=== PATIENT | female | born 1950 | race Caucasian/White ===

== ENCOUNTER → 2019-12-15 07:00 | Outpatient (CLI) | payer BC, SELFPAY ==
--- NOTE | ~2019-12-15 | MM_ITS ---
EXAMINATION: MM screening richard BI w jorge HISTORY: Screening mammogram, family history of breast cancer in her mother. TECHNIQUE: Craniocaudal and mediolateral oblique 3-D tomosynthesis images were obtained and synthetic 2-D images were generated. CAD analysis was submitted and interpreted. COMPARISON: 11/29/2018, 11/11/2017, 09/19/2016 BREAST PARENCHYMAL COMPOSITION: The breasts are almost entirely fatty. FINDINGS: RIGHT BREAST: An asymmetry is present in the middle/posterior third of the slightly outer breast 8 cm from the nipple on the craniocaudal view.. LEFT BREAST: There is no evidence of suspicious mass, calcification, or architectural distortion to s uggest malignancy. There has been no significant interval change. IMPRESSION: 1. Right breast asymmetry on the craniocaudal view. 2. Additional mammographic views and possible breast ultrasound are recommended. BI-RADS Category 0: Incomplete: Needs additional imaging evaluation. Reviewed, dictated and finalized at location A. FORGER IMPRESSION: 1. Right breast asymmetry on the craniocaudal view. 2. Additional mammographic views and possible breast ultrasound are recommended . BI-RADS Category 0: Incomplete: Needs additional imaging evaluation.
== END ==
PROVIDERS: PCP Obstetrics & Gynecology; Visit Provider Obstetrics & Gynecology
DX: Z12.31 Encounter for screening mammogram for malignant neoplasm of breast (principal); R92.8 Other abnormal and inconclusive findings on diagnostic imaging of breast
CPT/HCPCS: 77063; 77067

== ENCOUNTER → 2019-12-28 07:54 | Outpatient (CLI) | payer BC, SELFPAY ==
--- NOTE | ~2019-12-28 | MM_ITS ---
EXAMINATION: MM diagnostic mammo unilat RT HISTORY: Right breast asymmetry reported on 12/15/2019 screening craniocaudal view in middle/posterior third of slightly outer breast 8 cm from nipple TECHNIQUE: Rolled medial and rolled lateral craniocaudal views. Additional 3-D ML and spot craniocaud al tomosynthesis images of the right breast were performed and synthetic 2-D images were generated. C AD analysis was submitted and interpreted. COMPARISON: 12/15/2019 bilateral digital screening mammogram FINDINGS: The previously reported area of asymmetry is not reproduced on these supplemental views, co nsistent with composite shadowing of overlapping fibroglandular tissues. IMPRESSION: 1. No mammographic evidence of malignancy 2. Routine mammographic screening is recommended. BI-RADS Category 1: Negative Reviewed, dictated and finalized at location A. ER RECEPTIONIST
== END ==
PROVIDERS: PCP Family Medicine Adolescent Medicine; Visit Provider Obstetrics & Gynecology
DX: R92.8 Other abnormal and inconclusive findings on diagnostic imaging of breast (principal)
CPT/HCPCS: 77065

== ENCOUNTER → 2021-01-17 15:48 | Outpatient (CLI) | payer MEDICARE, OTHER, SELFPAY ==
--- NOTE | ~2021-01-17 | MM_ITS ---
EXAMINATION: MM screening richard BI w jorge HISTORY: Screening TECHNIQUE: Craniocaudal and mediolateral oblique 3-D tomosynthesis images were obtained and synthetic 2-D images were generated. CAD analysis was submitted and interpreted. COMPARISON: Comparison to multiple prior studies sequentially, with oldest reviewed study dated 02/2016. BREAST PARENCHYMAL COMPOSITION: There are scattered areas of fibroglandular density. FINDINGS: There is no evidence of suspicious mass, calcification, or architectural distortion to sugg est malignancy in either breast. There has been no suspicious interval change. IMPRESSION: 1. No mammographic evidence of malignancy. 2. Recommend routine screening mammography in one year. BI-RADS Category 1: Negative Reviewed, dictated and finalized at location A. HER CURRIER
== END ==
PROVIDERS: Visit Provider Student in an Organized Health Care Education/Training Program
DX: Z12.31 Encounter for screening mammogram for malignant neoplasm of breast (principal)
CPT/HCPCS: 77063; 77067

== ENCOUNTER → 2021-07-09 09:47 | Outpatient (CLI) | payer MEDICARE, OTHER, SELFPAY ==
--- NOTE | ~2021-07-09 | XR_ITS ---
XR hip BI wo pelvis DATE: 07/09/2021 12:01 INDICATION: Bilateral hip pain TECHNIQUE: Bilateral AP and lateral views of the hips COMPARISON: None FINDINGS: There is osteopenia. The pubic symphysis and sacroiliac joints are intact. There is bilateral hip joint chondrocalcinosis. There is moderate osteoarthritis at both hip joints. No fracture or dislocation, avascular necrosis or bone destruction. IMPRESSION: Bilateral hip osteoarthritis and chondrocalcinosis Reviewed, dictated and finalized at location A.
== END ==
PROVIDERS: PCP Family Medicine Adolescent Medicine; Visit Provider Physician Assistant
DX: M25.552 Pain in left hip (principal); M25.551 Pain in right hip; M16.0 Bilateral primary osteoarthritis of hip; M11.252 Other chondrocalcinosis, left hip; M11.251 Other chondrocalcinosis, right hip
CPT/HCPCS: 73521

== ENCOUNTER → 2021-08-19 10:10 | Outpatient (CLI) | payer MEDICARE, OTHER, SELFPAY ==
--- NOTE | ~2021-08-19 | US_ITS ---
EXAMINATION: US thyroid DATE: 08/19/2021 10:53 INDICATION: Left thyroid nodule. TECHNIQUE: Multiple ultrasound images of the thyroid were obtained. COMPARISON: None. FINDINGS: The right thyroid lobe measures 5.2 x 1.6 x 1.7 cm. The left thyroid lobe measures 4.7 x 1.9 x 2.0 c m. In the left thyroid lobe, there is a 2.8 cm solid, hypoechoic, zjpow-mzgr-gldb nodule with lobula justine margin without echogenic foci (TI-RADS TR4). IMPRESSION: 1. Left thyroid nodule. Ultrasound-guided fine-needle aspiration is recommended. Reviewed, dictated and finalized at location A. IMPRESSION: 1. Left thyroid nodule. Ultrasound-guided fine-needle aspiration is recommended .
== END ==
PROVIDERS: PCP Family Medicine Adolescent Medicine; Visit Provider Physician Assistant
DX: E04.1 Nontoxic single thyroid nodule (principal)
CPT/HCPCS: 76536

== ENCOUNTER 2021-08-23 09:43 | Outpatient (CLI) | payer MEDICARE, OTHER, SELFPAY ==
--- NOTE | ~2021-08-23 | US_ITS ---
EXAMINATION: US FNA w image guidance DATE: 08/23/2021 11:39 INDICATION: Left thyroid nodule TECHNIQUE: A time-out was performed to verify the patient's name, date of , and procedure to be performed . The procedure and its benefits and risks were discussed with the patient. Risks specifically discus sed included bleeding and infection. The patient understood the risks and agreed to proceed. The neck was prepped and draped in the usual sterile manner. 5 mL 1% lidocaine was used for local anesthesia . 6 passes were made with a 25G needle into the lesion. Appropriate needle location was documented with continuous sonographic guidance. The specimens were passed to the generation engineering technologist in the room. A sterile bandage was applied. There were no immediate complications. FINDINGS: Grayscale ultrasound images demonstrate biopsy needles advanced into a 2.4 cm TI-RADS 4 nodule in the left thyroid lobe. IMPRESSION: 1. Successful ultrasound-guided fine needle aspiration of a 2.4 cm TI-RADS 4 left thyroid nodule. Reviewed, dictated and finalized at location A. IMPRESSION: 1. Successful ultrasound-guided fine needle aspiration of a 2.4 cm TI-RADS 4 l eft thyroid nodule.
== END 2021-08-23 09:44 | disposition home or self-care (01) ==
PROVIDERS: PCP Family Medicine Adolescent Medicine; Visit Provider Family Medicine Adolescent Medicine
DX: E04.1 Nontoxic single thyroid nodule (principal)
CPT/HCPCS: 10005; 88173; 88305

== ENCOUNTER → 2022-02-21 16:34 | Outpatient (CLI) | payer MEDICARE, OTHER, SELFPAY ==
--- NOTE | ~2022-02-21 | MR_ITS ---
EXAMINATION: MR shoulder LT wo con DATE: 02/21/2022 17:21 INDICATION: Left shoulder pain TECHNIQUE: Magnetic resonance imaging (MRI) of the left shoulder was performed without intravenous co ntrast. Sequences included axial PD-weighted FS FSE, coronal oblique PD-weighted FS FSE, coronal obli que T2-weighted FS FSE, sagittal PD-weighted FS FSE, and sagittal T1-weighted SE. COMPARISON: Left shoulder radiographs dated 02/12/2022 FINDINGS: Coracoacromial arch: The acromion undersurface is curved in morphology (type II). The coracoacromial ligament is normal. M ild acromioclavicular osteoarthritis. Rotator cuff: Mild supraspinatus tendinopathy without discrete tear. The subscapularis, infraspinatus and teres min or tendons are normal. Normal rotator cuff muscle bulk and signal. Biceps tendon, glenoid labrum and glenohumeral cartilage: Long head of the biceps tendon is normal. Glenoid labrum is normal. Glenohumeral cartilage is normal. Fluid: Small amount of fluid in the long head biceps tendon sheath disproportionate to the physiologic amoun t fluid in the glenohumeral joint space consistent with mild bicipital tenosynovitis. No loose osteoc hondral bodies. No abnormal increased fluid signal in the subacromial/subdeltoid bursa to suggest bur sitis. Bones: Normal marrow signal. No fracture or pathologic marrow replacing process. IMPRESSION: 1. Mild supraspinatus tendinopathy without discrete tear. 2. Mild acromioclavicular osteoarthritis. 2. Mild bicipital tenosynovitis Reviewed, dictated and finalized at location B.
== END ==
PROVIDERS: PCP Family Medicine Adolescent Medicine; Visit Provider Physician Assistant Surgical
DX: M19.012 Primary osteoarthritis, left shoulder (principal); M65.812 Other synovitis and tenosynovitis, left shoulder
CPT/HCPCS: 73221

== ENCOUNTER → 2022-03-06 13:54 | Outpatient (CLI) | payer MEDICARE, OTHER, SELFPAY ==
--- NOTE | ~2022-03-06 | MM_ITS ---
EXAMINATION: MM screening richard BI w jorge HISTORY: Screening mammogram TECHNIQUE: Craniocaudal and mediolateral oblique 3-D tomosynthesis images were obtained and synthetic 2-D images were generated. CAD analysis was submitted and interpreted. COMPARISON: 01/2021, 12/15/2019, 11/29/2018 bilateral screening mammogram examinations To diagnostic right mammogram BREAST PARENCHYMAL COMPOSITION: The breasts are almost entirely fatty. FINDINGS: There is no evidence of suspicious mass, calcification, or architectural distortion to sugg est malignancy in either breast. There has been no suspicious interval change. IMPRESSION: 1. No mammographic evidence of malignancy. 2. Recommend routine screening mammography in one year. BI-RADS Category 1: Negative Reviewed, dictated and finalized at location A.
== END ==
PROVIDERS: PCP Family Medicine Adolescent Medicine; Visit Provider Obstetrics & Gynecology
DX: Z12.31 Encounter for screening mammogram for malignant neoplasm of breast (principal)
CPT/HCPCS: 77063; 77067

== ENCOUNTER 2022-06-24 08:10 | Emergency (ER) | payer MEDICARE, OTHER, SELFPAY ==
[2022-06-24 08:17] VITALS: BP 126/57; PULSE 76; RESP 16; TEMP 37.4; O2SAT 97
--- NOTE | 2022-06-24 08:22 | ED.URI ---
HPI - URI/Sore Throat General Chief Complaint: Upper Respiratory Infection Stated Complaint: + COVID/ELEVATED HEART RATE/HEADACHE Time Seen by Provider: 06/24/22 08:22 Source: patient and RN notes reviewed History of Present Illness HPI Narrative: Patient is a 71-year-old female who presents the urgent care with complaints of increased heart rate, body aches, soreness. Patient states she started with a stuffy nose and sore throat on Thursday and continued to push through. Patient states that she went to her swim class on Thursday and felt terrible afterwards. Patient states she had a bad night last night. States that this morning she tested herself at home for COVID and the at home test was positive. Patient also reports of some urinary frequency. Patient states she has had positive UTIs in the past. Denies any hematuria, nausea, vomiting, abdominal pain or low back pain. Patient states that she is remained really active and has not had any recent fevers. Patient denies of shortness of breath, chest pain or palpitations. States that her heart rate had gotten up into the mid 90s and was back to normal at this morning. Patient states her main concern is her history of A. fib. No other acute complaints. No acute distress noted. Patient aware of the plan of care. Some parts of this dictation were generated by voice recognition software and may contain typographical and/or grammatical inaccuracies. Related Data Home Medications Medication Instructions Recorded Confirmed amlodipine 5 mg tablet 5 mg PO DAILY 08/01/21 04/09/22 atorvastatin 10 mg tablet 10 mg PO DAILY 08/01/21 04/09/22 losartan 100 mg tablet 100 mg PO DAILY 08/01/21 04/09/22 ascorbate calcium (vitamin C) 500 500 mg PO DAILY 02/12/22 04/09/22 mg tablet carvedilol 6.25 mg tablet 6.25 mg PO Q12H 02/12/22 04/09/22 wobsegemrzy-ouq-lpmpxtzjl-hrb tablet PO 02/12/22 04/09/22 149-hyalur 500 mg-500 mg-66.7 mg tablet (Qcbnupyprsl-Llszscecaxv-LPM (with antiox)) hydrochlorothiazide 25 mg tablet 25 mg PO DAILY 02/12/22 04/09/22 multivitamin 1 tablet PO DAILY 02/12/22 04/09/22 Allergies Allergy/AdvReac Type Severity Reaction Status Date / Time No Known Allergies Allergy Verified 02/12/22 14:37 Review of Systems Review of Systems: CONSTITUTIONAL: Denies fever, chills, or sweats. EYES: Denies visual changes, redness, or discharge. ENT: Reports of sore throat, swollen tonsils CARDIOVASCULAR: Denies chest pain, palpitations, or edema. RESPIRATORY: Denies cough or dyspnea. GASTROINTESTINAL: Denies abdominal pain, nausea, vomiting, or diarrhea. GENITOURINARY: Reports of urinary frequency SKIN: Denies rash or itching. MUSCULOSKELETAL: Denies back pain, joint pain, or myalgia. NEUROLOGIC: Denies headache, numbness, or weakness. All other systems reviewed are negative, except as documented in HPI. [facility] Past Medical History Medical History A-fib History of cyst of breast (~1995) Lumbar spondylolysis Mitral valve prolapse Sleep apnea Surgical History Surgical History History of 2 sections (~1978) 1980 History of cardiac radiofrequency ablation History of D&C (~2009) History of dental surgery abcess cyst removed from gum History of tubal ligation (~1981) Family History Family History Mother Cancer Sibling Cancer Grandparent Arthritis Social History Social History Alcohol intake: never Substance use: never Comments At the time of my signature, I reviewed and agree with the nursing past medical, surgical, social, and family history. There is no relevant family history pertinent to the patient complaint. Exam Narrative: GENERAL: This is a well-nourished, well-developed patient, in no apparent distre
== END 2022-06-24 08:53 | disposition home or self-care (01) ==
PROVIDERS: Emergency Provider Nurse Practitioner Family; PCP Family Medicine Adolescent Medicine
DX: U07.1 COVID-19 (principal); R35.0 Frequency of micturition; I48.91 Unspecified atrial fibrillation; I34.1 Nonrheumatic mitral (valve) prolapse; G47.33 Obstructive sleep apnea (adult) (pediatric); M47.816 Spondylosis without myelopathy or radiculopathy, lumbar region
CPT/HCPCS: 81003; 99212; G0463

== ENCOUNTER 2022-07-05 12:52 | Emergency (ER) | payer MEDICARE, OTHER, SELFPAY ==
--- NOTE | ~2022-07-05 | XR_ITS ---
EXAMINATION: XR chest 2V DATE: 07/05/2022 13:11 INDICATION: Cough and shortness of breath. TECHNIQUE: Frontal and lateral views of the chest were obtained. COMPARISON: Chest 2 views 05/17/2019 FINDINGS: There is no pneumonia, pleural effusion, or pneumothorax. The heart size is normal. IMPRESSION: 1. No acute cardiopulmonary disease. Reviewed, dictated and finalized at location A.
[2022-07-05 13:02] VITALS: BP 146/88; PULSE 87; RESP 16; TEMP 37.1; O2SAT 97
--- NOTE | 2022-07-05 13:06 | ED.URI ---
HPI - URI/Sore Throat General Chief Complaint: Upper Respiratory Infection Stated Complaint: cough, chest pain Time Seen by Provider: 07/05/22 13:20 Source: patient and RN notes reviewed Mode of arrival: ambulatory Limitations: no limitations History of Present Illness HPI Narrative: 71-year-old female presents concern for persistent cough. She reports she was diagnosed with COVID on June 23. Reports she began to have worsening cough, bilateral chest wall pain that worsened with coughing. Reports brown sinus drainage. Reports she called her primary care who prescribed her levofloxacin and Tessalon Perles, she has been taking those for approximately 3 to 4 days. She reports she has not had any improvement in symptoms. Reports cough is keeping her awake at night. She reports she has been vaccinated for COVID, however she did not take Paxlovid upon her diagnosis of COVID. She reports history of A. fib, she does not have chronic A. fib. She reports exertional shortness of breath, denies shortness of breath at rest. Reports episodes of coughing fits. She reports she has been doing sinus rinses at home. MD elicited complaint: cough Related Data Home Medications Medication Instructions Recorded Confirmed amlodipine 5 mg tablet 5 mg PO DAILY 08/01/21 04/09/22 atorvastatin 10 mg tablet 10 mg PO DAILY 08/01/21 04/09/22 losartan 100 mg tablet 100 mg PO DAILY 08/01/21 04/09/22 ascorbate calcium (vitamin C) 500 500 mg PO DAILY 02/12/22 04/09/22 mg tablet carvedilol 6.25 mg tablet 6.25 mg PO Q12H 02/12/22 04/09/22 hpmrwvrkzir-qgq-zopegquoh-hrb tablet PO 02/12/22 04/09/22 149-hyalur 500 mg-500 mg-66.7 mg tablet (Bbvvytzafac-Uldvsouyike-YDG (with antiox)) hydrochlorothiazide 25 mg tablet 25 mg PO DAILY 02/12/22 04/09/22 multivitamin 1 tablet PO DAILY 02/12/22 04/09/22 Allergies Allergy/AdvReac Type Severity Reaction Status Date / Time No Known Allergies Allergy Verified 02/12/22 14:37 Review of Systems Review of Systems: CONSTITUTIONAL: Reports malaise. Denies chills, sweats, or fever. EYES: Denies visual changes, redness, or discharge. ENT: Reports rhinorrhea, congestion. Denies sinus pain, otalgia and sore throat. CARDIOVASCULAR: Denies chest pain, palpitations, or edema. RESPIRATORY: Reports persistent cough, exertional dyspnea. GASTROINTESTINAL: Denies abdominal pain, nausea, vomiting, diarrhea All systems reviewed & are unremarkable except as noted in HPI and below PMFSH Past Medical History Medical History A-fib History of cyst of breast (~1995) Lumbar spondylolysis Mitral valve prolapse Sleep apnea Surgical History Surgical History History of 2 sections (~1978) 1980 History of cardiac radiofrequency ablation History of D&C (~2009) History of dental surgery abcess cyst removed from gum History of tubal ligation (~1981) Family History Family History Mother Cancer Sibling Cancer Grandparent Arthritis Social History Social History Alcohol intake: never Substance use: never Comments At time of signature, agree with nursing past medical, surgical, social and family history. There is no relevant family history pertinent to the presenting complaint Exam Narrative: GENERAL: Nontoxic-appearing and in no acute distress. HEAD: Normocephalic EYES: PERRLA, conjunctivae clear ENT: Nares clear, turbinates edematous and erythematous. Mucous membranes moist. TM pearly maxwell with dull light reflex bilaterally; no tragal tenderness. Oropharynx not erythematous without lesions. Tonsils not enlarged and without exudate, no drooling, no hoarseness, no trismus, uvula midline. NECK: Supple. No lymphadenopathy CHEST: Scattered right upper lobe rhonchi that latha
== END 2022-07-05 14:01 | disposition home or self-care (01) ==
PROVIDERS: Emergency Provider Nurse Practitioner; PCP Family Medicine Adolescent Medicine
DX: J40 Bronchitis, not specified as acute or chronic (principal); R07.89 Other chest pain; I48.91 Unspecified atrial fibrillation; I34.1 Nonrheumatic mitral (valve) prolapse; G47.30 Sleep apnea, unspecified; M47.816 Spondylosis without myelopathy or radiculopathy, lumbar region; Z86.16 Personal history of COVID-19
CPT/HCPCS: 71046; 99213; G0463

== ENCOUNTER → 2022-07-30 11:43 | Outpatient (CLI) | payer MEDICARE, OTHER, SELFPAY ==
--- NOTE | ~2022-07-30 | US_ITS ---
EXAMINATION: US thyroid DATE: 07/30/2022 12:08 INDICATION: Nontoxic single thyroid nodule. TECHNIQUE: Multiple ultrasound images of the thyroid were obtained. COMPARISON: Ultrasound 08/19/2021 FINDINGS: The right thyroid lobe measures 4.3 x 1.3 x 1.6 cm. The left thyroid lobe measures 4.5 x 1.9 x 1.8 c m. In the left thyroid lobe, there is a 2.9 cm solid, hypoechoic, wider than tall nodule with irregu lar margin without echogenic foci (TI-RADS TR4). IMPRESSION: 1. Left thyroid nodule, stable from 08/19/2021. Biopsy on 08/23/2021 was benign. Reviewed, dictated and finalized at location A.
== END ==
PROVIDERS: PCP Family Medicine Adolescent Medicine; Visit Provider Family Medicine Adolescent Medicine
DX: E04.1 Nontoxic single thyroid nodule (principal)
CPT/HCPCS: 76536

== ENCOUNTER 2023-02-13 09:53 | Emergency (ER) | payer MEDICARE, OTHER, SELFPAY ==
[2023-02-13 10:06] VITALS: BP 121/66; PULSE 72; RESP 16; TEMP 36.7; O2SAT 96
[2023-02-13 10:09] VITALS: BP 121/66; PULSE 72; RESP 16; TEMP 36.7; O2SAT 96
--- NOTE | 2023-02-13 10:16 | ED.FEMALEGU ---
HPI - Female Genitourinary General Chief complaint: Urogenital-Female Stated complaint: FREQUENT URINATION Time Seen by Provider: 02/13/23 10:18 Source: patient, RN notes reviewed and old records reviewed Mode of arrival: ambulatory Limitations: no limitations History of Present Illness HPI Narrative: 72 year old female who presents to express care with complaints of frequency of urination, feeling like she has to void and unable to void, and urgency,denies any burning which started this morning. Patient reports that she has had past history of UTI's since going through menopause didn't seem to have issues before then. patient denies any fevers chills or sweats, denies any nausea or vomiting. patient reports no vaginal discharge or any itching, denies any concern for STD's. Patient reports that she has been having some intermittent dull discomfort in left side of abdomen and had ultrasound yesterday. MD elicited complaint: UTI Pertinent past history: other (past UTI's) Onset (ago): hour(s) (this morning) Related Data Home Medications Medication Instructions Recorded Confirmed amlodipine 5 mg tablet 5 mg PO DAILY 08/01/21 02/13/23 atorvastatin 10 mg tablet 10 mg PO DAILY 08/01/21 02/13/23 losartan 100 mg tablet 100 mg PO DAILY 08/01/21 02/13/23 carvedilol 6.25 mg tablet 6.25 mg PO Q12H 02/12/22 02/13/23 ahceajmckyd-sdj-wnfoukvyj-hrb 1 tablet PO DAILY 02/12/22 02/13/23 149-hyalur 500 mg-500 mg-66.7 mg tablet (Plouvkspphp-Qedhlccezcz-JBZ (with antiox)) hydrochlorothiazide 25 mg tablet 25 mg PO DAILY 02/12/22 02/13/23 multivitamin 1 tablet PO DAILY 02/12/22 02/13/23 Allergies Allergy/AdvReac Type Severity Reaction Status Date / Time No Known Allergies Allergy Verified 02/13/23 10:07 Review of Systems Review of Systems: CONSTITUTIONAL: Denies fever, chills, or sweats. CARDIOVASCULAR: Denies chest pain, palpitations, or edema. RESPIRATORY: Denies cough or dyspnea. GASTROINTESTINAL: Denies any acute abdominal pain,no nausea, vomiting, or diarrhea. GENITOURINARY: Reports dysuria, frequency, urgency. Denies flank pain or hematuria. SKIN: Denies rash or itching. MUSCULOSKELETAL: Denies back pain or myalgia. Denies CVA tenderness NEUROLOGIC: Denies headache All systems reviewed & are unremarkable except as noted in HPI and below PMFSH Past Medical History Medical History A-fib COVID-19 History of cyst of breast (~1995) Lumbar spondylolysis Mitral valve prolapse Sleep apnea Surgical History Surgical History History of 2 sections (~1978) 1980 History of cardiac radiofrequency ablation History of D&C (~2009) History of dental surgery abcess cyst removed from gum History of tubal ligation (~1981) Family History Family History Mother Cancer Sibling Cancer Grandparent Arthritis Social History Social History Smoking status: Never smoker Second hand tobacco smoke exposure: No Alcohol intake: current Substance use: never Substance use type: does not use Living arrangements: alone Occupation/Education: retired Gender identity (if verbalized by the patient): Female Comments At time of signature, agree with nursing past medical, surgical, social and family history. There is no relevant family history pertinent to the presenting complaint Exam Narrative: GENERAL: Well-appearing, well-nourished, and in no acute distress. HEAD: Normocephalic, atraumatic. NECK: Supple.no lymphadenopathy CHEST: Clear to auscultation. No respiratory distress.SAO2 96% on room air HEART: Regular rate and rhythm. No murmur heard. Normal peripheral pulses. ABDOMEN: Soft, nontender to palpation, nondistended, normal active bowel sounds. No CVA tenderness EXTREMITIES: Normal range of
== END 2023-02-13 10:38 | disposition home or self-care (01) ==
PROVIDERS: Emergency Provider Registered Nurse; PCP Family Medicine Adolescent Medicine
DX: N39.0 Urinary tract infection, site not specified (principal); I48.91 Unspecified atrial fibrillation; I34.1 Nonrheumatic mitral (valve) prolapse; M47.816 Spondylosis without myelopathy or radiculopathy, lumbar region; Z86.16 Personal history of COVID-19
CPT/HCPCS: 81003; 87077; 87086; 87186; 99213; G0463

== ENCOUNTER → 2023-05-27 14:59 | Outpatient (CLI) | payer MEDICARE, OTHER, SELFPAY ==
--- NOTE | ~2023-05-27 | MM_ITS ---
EXAMINATION: MM screening richard BI w jorge HISTORY: Screening mammogram TECHNIQUE: Craniocaudal and mediolateral oblique 3-D tomosynthesis images were obtained and synthetic 2-D images were generated. CAD analysis was submitted and interpreted. COMPARISON: March 06, 2022, January 17, 2021 bilateral screening mammogram examinations BREAST PARENCHYMAL COMPOSITION: The breasts are almost entirely fatty. FINDINGS: There is no evidence of suspicious mass, calcification, or architectural distortion to sugg est malignancy in either breast. There has been no suspicious interval change. IMPRESSION: 1. No mammographic evidence of malignancy. 2. Recommend routine screening mammography in one year. BI-RADS Category 1: Negative Reviewed, dictated and finalized at location A.
== END ==
PROVIDERS: PCP Family Medicine Adolescent Medicine; Visit Provider Obstetrics & Gynecology
DX: Z12.31 Encounter for screening mammogram for malignant neoplasm of breast (principal)
CPT/HCPCS: 77063; 77067

== ENCOUNTER 2023-09-15 08:07 | Emergency (ER) | payer MEDICARE, OTHER, SELFPAY ==
--- NOTE | 2023-09-15 08:14 | ED.URI ---
HPI - URI/Sore Throat General Chief Complaint: Upper Respiratory Infection Stated Complaint: COUGH Source: patient, RN notes reviewed and old records reviewed Mode of arrival: ambulatory Limitations: no limitations History of Present Illness HPI Narrative: 73 year old female who presents to express care with complaints of sore throat and cough which started day before last. Patient is concerned with symptoms due to having family member in hospital who is acutely ill and she is POA and has been going to hospital in [place], [place] either daily or every other day to see patient. Patient reports no known fever chills or sweats, reports dry cough, denies any shortness of breath. Patient reports that she is really fatigued and has been under a lot of stress. Patient reports that she has not had flu shot or her COVID shot this year yet. MD elicited complaint: cough and sore throat Onset (ago): day(s) (2) Pain scale (0-10): 3 Description of mucous: clear Able to tolerate fluids by mouth: Yes Treatments prior to arrival: other (cough drops) Related Data Home Medications Medication Instructions Recorded Confirmed atorvastatin 10 mg tablet 10 mg PO DAILY 08/01/21 09/15/23 carvedilol 6.25 mg tablet 6.25 mg PO Q12H 02/12/22 09/15/23 htiyvibqwon-nww-nlwlwubew-hrb 1 tablet PO DAILY 02/12/22 09/15/23 149-hyalur 500 mg-500 mg-66.7 mg tablet (Kutunuuwzia-Dxupnnkwpjr-VRL (with antiox)) hydrochlorothiazide 25 mg tablet 25 mg PO DAILY 02/12/22 09/15/23 multivitamin 1 tablet PO DAILY 02/12/22 09/15/23 calcium carbonate 500 mg calcium 500 mg PO DAILY 05/25/23 09/15/23 (1,250 mg) chewable tablet (Calcium 500) cetirizine 10 mg capsule (Zyrtec) 10 mg PO DAILY 05/25/23 09/15/23 cholecalciferol (vitamin D3) 10 10 mcg PO DAILY 05/25/23 09/15/23 mcg (400 unit) capsule (Vitamin D3) amlodipine 10 mg tablet 10 mg PO DAILY 09/15/23 09/15/23 Allergies Allergy/AdvReac Type Severity Reaction Status Date / Time No Known Allergies Allergy Verified 09/15/23 08:15 Review of Systems Review of Systems: CONSTITUTIONAL: Denies malaise, chills, sweats, or fever. EYES: Denies visual changes, redness, or discharge. ENT: Reports rhinorrhea, congestion, no sinus pain, no otalgia and positive for sore throat CARDIOVASCULAR: Denies chest pain, palpitations, or edema. RESPIRATORY: Reports dry cough.? Denies dyspnea. GASTROINTESTINAL: Denies abdominal pain, nausea, vomiting, diarrhea SKIN: Denies rash or itching. MUSCULOSKELETAL: Denies myalgia. NEUROLOGIC: Denies headache. All systems reviewed & are unremarkable except as noted in HPI and below PMFSH Past Medical History Medical History A-fib COVID-19 History of cyst of breast (~1995) Lumbar spondylolysis Mitral valve prolapse Sleep apnea Surgical History Surgical History History of 2 sections (~1978) 1980 History of cardiac radiofrequency ablation History of D&C (~2009) History of dental surgery abcess cyst removed from gum History of tubal ligation (~1981) Family History Family History Mother Cancer Sibling Cancer Grandparent Arthritis Social History Social History Smoking status: Never smoker Second hand tobacco smoke exposure: No Alcohol intake: current Substance use: never Substance use type: does not use Living arrangements: alone Occupation/Education: retired Gender identity (if verbalized by the patient): Female Comments At time of signature, agree with nursing past medical, surgical, social and family history. There is no relevant family history pertinent to the presenting complaint Exam Narrative: GENERAL: Well-appearing, well-nourished, and in no acute distress. HEAD: Normocephalic
[2023-09-15 08:19] VITALS: BP 115/74; PULSE 73; RESP 16; TEMP 37.1; O2SAT 98
== END 2023-09-15 09:08 | disposition home or self-care (01) ==
PROVIDERS: Emergency Provider Registered Nurse; PCP Family Medicine Adolescent Medicine
DX: U07.1 COVID-19 (principal); I48.91 Unspecified atrial fibrillation; M47.816 Spondylosis without myelopathy or radiculopathy, lumbar region; I34.1 Nonrheumatic mitral (valve) prolapse
CPT/HCPCS: 87081; 87426; 87804; 87880; 99213; C9803; G0463

== ENCOUNTER 2023-12-15 15:39 | Emergency (ER) | payer MEDICARE, OTHER, SELFPAY ==
[2023-12-15 15:46] VITALS: BP 142/71; PULSE 70; RESP 16; TEMP 36.6; O2SAT 100
--- NOTE | 2023-12-15 15:56 | ED.FEMALEGU ---
HPI - Female Genitourinary General Chief complaint: Urogenital-Female Stated complaint: Bladder Infection Time Seen by Provider: 12/15/23 15:50 Source: patient Mode of arrival: ambulatory Limitations: no limitations History of Present Illness HPI Narrative: Yuni is a 73-year-old female patient presenting to the clinic today with complaints of urinary frequency times 1-2 days. Reports she does get frequent urinary tract infections and is concerned that this is a developing UTI. She denies any fever, chills, body aches, abdominal pain, or back pain. No concern for any sexually transmitted infections. Related Data Home Medications Medication Instructions Recorded Confirmed atorvastatin 10 mg tablet 10 mg PO DAILY 08/01/21 11/24/23 carvedilol 6.25 mg tablet 6.25 mg PO Q12H 02/12/22 11/24/23 rfbbqsaayhr-wem-fofxumjpe-hrb 1 tablet PO DAILY 02/12/22 11/24/23 149-hyalur 500 mg-500 mg-66.7 mg tablet (Saxknhaqqyo-Zwmxwjsgxam-LYS (with antiox)) hydrochlorothiazide 25 mg tablet 25 mg PO DAILY 02/12/22 11/24/23 multivitamin 1 tablet PO DAILY 02/12/22 11/24/23 calcium carbonate 500 mg calcium 500 mg PO DAILY 05/25/23 11/24/23 (1,250 mg) chewable tablet (Calcium 500) cetirizine 10 mg capsule (Zyrtec) 10 mg PO DAILY 05/25/23 11/24/23 cholecalciferol (vitamin D3) 10 10 mcg PO DAILY 05/25/23 11/24/23 mcg (400 unit) capsule (Vitamin D3) amlodipine 10 mg tablet 10 mg PO DAILY 09/15/23 11/24/23 Allergies Allergy/AdvReac Type Severity Reaction Status Date / Time No Known Allergies Allergy Verified 11/24/23 10:54 Review of Systems Review of Systems: Pertinent positives per HPI. Patient denies any fever, chills, rash, headache, visual changes, dizziness, cough, runny nose, sore throat, shortness of breath, chest pain, palpitations, nausea, vomiting, diarrhea, constipation, abdominal pain, or any urinary issues. PMF Past Medical History Medical History A-fib COVID-19 History of cyst of breast (~1995) Lumbar spondylolysis Mitral valve prolapse Sleep apnea Surgical History Surgical History History of 2 sections (~1978) 1981 History of cardiac radiofrequency ablation History of D&C (~2009) History of dental surgery abcess cyst removed from gum History of tubal ligation (~1981) Family History Family History Mother Cancer Sibling Cancer Grandparent Arthritis Social History Social History Smoking status: Never smoker Second hand tobacco smoke exposure: No Alcohol intake: current Substance use: never Substance use type: does not use Living arrangements: alone Occupation/Education: retired Gender identity (if verbalized by the patient): Female Comments At the time of my signature, I reviewed and agree with the nursing past medical, surgical, social, and family history. There is no relevant family history pertinent to the patient complaint. Exam Narrative: General: Well-developed, well nourished, in no apparent distress. Head: Normocephalic, atraumatic. Cardio: Regular rate and rhythm, s1 and s2 normal, no murmur appreciated. Resp: Clear to auscultation bilaterally, no rhonchi, rales, wheezing or rubs. Abdomen: Soft, pliable, bowel sounds present in all quadrants, non-tender to palpation, no organomegly, no CVAT tenderness. Course Course Emergency Course: Portions of this record may have been created with voice recognition software. Level of Care: Express Care Visit Vital Signs Vital signs: Vital Signs Temperature 36.6 C 12/15/23 15:46 Pulse Rate 70 12/15/23 15:46 Respiratory Rate 16 12/15/23 15:46 Blood Pressure 142/71 H 12/15/23 15:46 Pulse Oximetry 100 12/15/23 15:46 Temperature 36.6 C 01
== END 2023-12-15 16:04 | disposition home or self-care (01) ==
PROVIDERS: Emergency Provider Nurse Practitioner Family; PCP Family Medicine Adolescent Medicine
DX: N39.0 Urinary tract infection, site not specified (principal); B96.89 Other specified bacterial agents as the cause of diseases classified elsewhere; I48.91 Unspecified atrial fibrillation; I34.1 Nonrheumatic mitral (valve) prolapse; M47.816 Spondylosis without myelopathy or radiculopathy, lumbar region; Z86.16 Personal history of COVID-19
CPT/HCPCS: 81003; 87077; 87086; 87186; 99213; G0463

== ENCOUNTER 2024-01-12 08:44 | Emergency (ER) | payer MEDICARE, OTHER, SELFPAY ==
[2024-01-12 08:51] VITALS: BP 127/71; PULSE 96; RESP 16; TEMP 35.9
--- NOTE | 2024-01-12 08:52 | ED.FEMALEGU ---
HPI - Female Genitourinary General Chief complaint: Urogenital-Female Stated complaint: uti symptoms Time Seen by Provider: 01/12/24 08:52 Source: patient, RN notes reviewed and old records reviewed Mode of arrival: ambulatory Limitations: no limitations History of Present Illness HPI Narrative: 73 year female who presents [facility] with complaints of urinary frequency, urgency, and increased nocturia,was treated with Cipro a few weeks ago and doesn't feel it cleared her UTI. Patient admits that she is not a good water drinker and has had history of past UTI's. Patient denies any recent fevers, chills or sweats, denies any suprapubic pain or any CVA tenderness. Patient reports no vaginal discharge or itching or any concern for STD exposure. MD elicited complaint: UTI Pertinent past history: other (UTI's) Onset (ago): day(s) (4-5) Location of symptoms: perineum Severity: mild Severity scale (1-10): 2 Quality of pain: aching Vaginal discharge: none Related Data Home Medications Medication Instructions Recorded Confirmed atorvastatin 10 mg tablet 10 mg PO DAILY 08/01/21 01/12/24 carvedilol 6.25 mg tablet 6.25 mg PO Q12H 02/12/22 01/12/24 sgotcyhdgfr-cxd-ktzridjjp-hrb 1 tablet PO DAILY 02/12/22 01/12/24 149-hyalur 500 mg-500 mg-66.7 mg tablet (Wjcllhmlzos-Czvuxzlmwet-GEK (with antiox)) hydrochlorothiazide 25 mg tablet 25 mg PO DAILY 02/12/22 01/12/24 multivitamin 1 tablet PO DAILY 02/12/22 01/12/24 calcium carbonate 500 mg calcium 500 mg PO DAILY 05/25/23 01/12/24 (1,250 mg) chewable tablet (Calcium 500) cetirizine 10 mg capsule (Zyrtec) 10 mg PO DAILY 05/25/23 01/12/24 cholecalciferol (vitamin D3) 10 10 mcg PO DAILY 05/25/23 01/12/24 mcg (400 unit) capsule (Vitamin D3) amlodipine 10 mg tablet 10 mg PO DAILY 09/15/23 01/12/24 Allergies Allergy/AdvReac Type Severity Reaction Status Date / Time No Known Allergies Allergy Verified 01/12/24 08:48 Review of Systems Review of Systems: CONSTITUTIONAL: Denies fever, chills, or sweats. CARDIOVASCULAR: Denies chest pain, palpitations, or edema. RESPIRATORY: Denies cough or dyspnea. GASTROINTESTINAL: Denies abdominal pain, nausea, vomiting, or diarrhea. GENITOURINARY: Reports dysuria, frequency, urgency. Denies flank pain or hematuria. SKIN: Denies rash or itching. MUSCULOSKELETAL: Denies back pain or myalgia. Denies CVA tenderness NEUROLOGIC: Denies headache All systems reviewed & are unremarkable except as noted in HPI and below PMFSH Past Medical History Medical History A-fib COVID-19 History of cyst of breast (~1995) Lumbar spondylolysis Mitral valve prolapse Sleep apnea Surgical History Surgical History History of 2 sections (~1978) 1980 History of cardiac radiofrequency ablation History of D&C (~2009) History of dental surgery abcess cyst removed from gum History of tubal ligation (~1981) Family History Family History Mother Cancer Sibling Cancer Grandparent Arthritis Social History Social History Smoking status: Never smoker Second hand tobacco smoke exposure: No Alcohol intake: current Substance use: never Substance use type: does not use Living arrangements: alone Occupation/Education: retired Gender identity (if verbalized by the patient): Female Comments At time of signature, agree with nursing past medical, surgical, social and family history. There is no relevant family history pertinent to the presenting complaint Exam Narrative: GENERAL: Well-appearing, well-nourished, and in no acute distress. HEAD: Normocephalic, atraumatic. NECK: Supple. no lymphadenopathy CHEST: Clear to auscultation. No respiratory distress. no cough or any shortness of breath,SAO2 9
== END 2024-01-12 09:05 | disposition home or self-care (01) ==
PROVIDERS: Emergency Provider Registered Nurse; PCP Family Medicine Adolescent Medicine
DX: N39.0 Urinary tract infection, site not specified (principal); B96.89 Other specified bacterial agents as the cause of diseases classified elsewhere; I48.91 Unspecified atrial fibrillation; I34.1 Nonrheumatic mitral (valve) prolapse; M47.816 Spondylosis without myelopathy or radiculopathy, lumbar region
CPT/HCPCS: 81003; 87077; 87086; 87186; 99213; G0463

== ENCOUNTER 2024-05-30 15:51 | Emergency (ER) | payer MEDICARE, OTHER, SELFPAY ==
[2024-05-30 16:05] VITALS: BP 136/64; PULSE 79; RESP 16; TEMP 36.8; O2SAT 98
[2024-05-30 16:12] LABS: EDUAAPPEAR Cloudy; EDUABILI Negative; EDUABLOOD Negative; EDUACOLOR1 Yellow; EDUAGLUCOSE Negative; EDUAKETONE 1+; EDUALEUKO 2+; EDUANITRATE Positive; EDUAPROTEIN Negative; EDUAUROBILI 0.2
--- NOTE | 2024-05-30 16:29 | ED.FEMALEGU ---
HPI - Female Genitourinary General Chief complaint: Urogenital-Female Stated complaint: Uti Symptoms Time Seen by Provider: 05/30/24 16:13 Source: patient, RN notes reviewed and old records reviewed Mode of arrival: ambulatory Limitations: no limitations History of Present Illness HPI Narrative: Patient presents today complaining of urinary frequency for the past few days. Denies any additional symptoms to include dysuria, abdominal pain, hematuria. She was recently treated on 05/10/2024 with a course of Macrobid for UTI symptoms. She was not seen or evaluated at that time, but called her PCPs office and they called in a prescription. She does have extensive history of UTI. She has been taking azo occasionally for symptoms. Review of previous urine cultures show Citrobacter positive results in November in December with no resistance. Related Data Home Medications Medication Instructions Recorded Confirmed atorvastatin 10 mg tablet 10 mg PO DAILY 08/01/21 05/30/24 carvedilol 6.25 mg tablet 6.25 mg PO Q12H 02/12/22 05/30/24 pbylthmligq-nwc-psythprwv-hrb 1 tablet PO DAILY 02/12/22 05/30/24 149-hyalur 500 mg-500 mg-66.7 mg tablet (Hiumuhodpyr-Cskiegiwoee-VNW (with antiox)) hydrochlorothiazide 25 mg tablet 25 mg PO DAILY 02/12/22 05/30/24 multivitamin 1 tablet PO DAILY 02/12/22 05/30/24 calcium carbonate (Calcium 500) 500 mg PO DAILY 05/25/23 05/30/24 cetirizine 10 mg capsule (Zyrtec) 10 mg PO DAILY 05/25/23 05/30/24 amlodipine 10 mg tablet 10 mg PO DAILY 09/15/23 05/30/24 aspirin 81 mg capsule 81 mg PO DAILY 05/30/24 05/30/24 Allergies Allergy/AdvReac Type Severity Reaction Status Date / Time No Known Allergies Allergy Verified 05/30/24 16:00 Review of Systems Review of Systems: CONSTITUTIONAL: Denies body aches, fever, chills, or sweats. EYES: Denies visual changes, redness, or discharge. ENT: Denies rhinorrhea, congestion, sore throat, or otalgia. CARDIOVASCULAR: Denies chest pain, palpitations, or edema. RESPIRATORY: Denies cough or dyspnea. GASTROINTESTINAL: Denies abdominal pain, nausea, vomiting, or diarrhea. GENITOURINARY: Denies dysuria or hematuria.+ frequency SKIN: Denies rash, itching, or wounds. MUSCULOSKELETAL: Denies back pain, joint pain, or myalgia. NEUROLOGIC: Denies headache, numbness, tingling, or weakness. PSYCH: Denies depression or anxiety. PMFSH Past Medical History Medical History A-fib COVID-19 History of cyst of breast (~1995) Lumbar spondylolysis Mitral valve prolapse Sleep apnea Surgical History Surgical History History of 2 sections (~1978) 1980 History of cardiac radiofrequency ablation History of D&C (~2009) History of dental surgery abcess cyst removed from gum History of tubal ligation (~1981) Family History Family History Mother Cancer Sibling Cancer Grandparent Arthritis Social History Social History Smoking status: Never smoker Second hand tobacco smoke exposure: No Alcohol intake: current Substance use: never Substance use type: does not use Living arrangements: alone Occupation/Education: retired Gender identity (if verbalized by the patient): Female Comments At time of signature, I have reviewed and agree with nursing past medical, surgical, social and family history unless otherwise noted. Please see nursing chart for further information. There is no relevant family history pertinent to the presenting complaint Exam Narrative: GENERAL: Well-appearing, well-nourished, and in no acute distress. HEAD: Normocephalic, atraumatic. EYES: EOMI. No redness or drainage. Conjunctivae normal. ENT: Mucous membranes pink and moist. NECK: Normal AROM. CHEST: No respiratory
== END 2024-05-30 16:30 | disposition home or self-care (01) ==
PROVIDERS: Emergency Provider Nurse Practitioner; PCP Family Medicine Adolescent Medicine
DX: N30.00 Acute cystitis without hematuria (principal); B96.20 Unspecified Escherichia coli [E. coli] as the cause of diseases classified elsewhere; I48.91 Unspecified atrial fibrillation; M47.816 Spondylosis without myelopathy or radiculopathy, lumbar region; I34.1 Nonrheumatic mitral (valve) prolapse; Z86.16 Personal history of COVID-19
CPT/HCPCS: 81003; 87077; 87086; 87186; 99213; G0463

== ENCOUNTER 2024-06-14 10:31 | Emergency (ER) | payer MEDICARE, OTHER, SELFPAY ==
[2024-06-14 10:46] VITALS: BP 116/62; PULSE 66; RESP 16; TEMP 36.4; O2SAT 95
--- NOTE | 2024-06-14 10:56 | ED.GENADULT ---
HPI - General Adult General Chief complaint: Urogenital-Female Stated complaint: Uti Symptoms Time Seen by Provider: 06/14/24 10:56 Source: patient, RN notes reviewed and old records reviewed Mode of arrival: ambulatory Limitations: no limitations History of Present Illness HPI narrative: 73-year-old female to Express Care for complaint of urinary frequency. Patient reports she was seen here 2 weeks ago and treated for urinary tract infection. Patient states that urinary frequency is still persisting and that she tested her urine at home and reports presence of leukocytes and pH being abnormal. Patient states that she did not use antiseptic wipe prior to collecting urine sample at home. Patient denies urinary urgency, incontinence, dysuria, hematuria, dribbling, retention, fever, abdominal pain, flank pain, back pain, allergies. Patient able to tolerate fluids by mouth. Patient in no acute distress. Respirations even and nonlabored. Related Data Home Medications Medication Instructions Recorded Confirmed atorvastatin 10 mg tablet 10 mg PO DAILY 08/01/21 05/30/24 carvedilol 6.25 mg tablet 6.25 mg PO Q12H 02/12/22 05/30/24 klhremgqwzu-yvi-ivmzlmnwq-hrb 1 tablet PO DAILY 02/12/22 05/30/24 149-hyalur 500 mg-500 mg-66.7 mg tablet (Ufrqozmuykk-Cqkypkzmxkd-XOP (with antiox)) hydrochlorothiazide 25 mg tablet 25 mg PO DAILY 02/12/22 05/30/24 multivitamin 1 tablet PO DAILY 02/12/22 05/30/24 calcium carbonate (Calcium 500) 500 mg PO DAILY 05/25/23 05/30/24 cetirizine 10 mg capsule (Zyrtec) 10 mg PO DAILY 05/25/23 05/30/24 amlodipine 10 mg tablet 10 mg PO DAILY 09/15/23 05/30/24 aspirin 81 mg capsule 81 mg PO DAILY 05/30/24 05/30/24 Allergies Allergy/AdvReac Type Severity Reaction Status Date / Time No Known Allergies Allergy Verified 05/30/24 16:00 Review of Systems Review of Systems: All systems reviewed & are unremarkable except as noted in HPI and below Constitutional: Constitutional: Reports no additional constitutional complaints Eyes: Eyes: Reports no additional eye complaints ENT: Reports system reviewed and no additional complaints, except as documented Cardiovascular: Cardiovascular: Reports no additional cardiovascular complaints, Denies chest pain and Denies dyspnea Respiratory: Respiratory: Reports no additional respiratory complaints, Denies cough and Denies dyspnea Genitourinary: Genitourinary: Reports as per HPI and Reports nocturia Musculoskeletal: Musculoskeletal: Reports no additional musculoskeletal complaints Neurologic: Reports system reviewed and no additional complaints, except as documented Psychiatric: Psychiatric: Reports no additional psychiatric complaints [facility] Past Medical History Medical History A-fib COVID-19 History of cyst of breast (~1995) Lumbar spondylolysis Mitral valve prolapse Sleep apnea Surgical History Surgical History History of 2 sections (~1978) 1980 History of cardiac radiofrequency ablation History of D&C (~2009) History of dental surgery abcess cyst removed from gum History of tubal ligation (~1981) Family History Family History Mother Cancer Sibling Cancer Grandparent Arthritis Social History Social History Smoking status: Never smoker Second hand tobacco smoke exposure: No Alcohol intake: current Substance use: never Substance use type: does not use Living arrangements: alone Occupation/Education: retired Gender identity (if verbalized by the patient): Female Comments At the time of my signature, I reviewed and agree with the nursing past medical, surgical, social, and family history. There is no relevant family history pertinent to the patient complaint. Exam
[2024-06-14 11:07] LABS: EDUAAPPEAR Cloudy; EDUABILI Negative; EDUABLOOD Negative; EDUACOLOR1 Yellow; EDUAGLUCOSE Negative; EDUAKETONE Trace; EDUALEUKO Negative; EDUANITRATE Negative; EDUAPH 6.5; EDUAPROTEIN Negative; EDUAUROBILI 0.2
== END 2024-06-14 11:32 | disposition home or self-care (01) ==
PROVIDERS: Emergency Provider Nurse Practitioner Family; PCP Family Medicine Adolescent Medicine
DX: R35.0 Frequency of micturition (principal); I48.91 Unspecified atrial fibrillation; I34.1 Nonrheumatic mitral (valve) prolapse; M47.816 Spondylosis without myelopathy or radiculopathy, lumbar region; Z79.82 Long term (current) use of aspirin
CPT/HCPCS: 81003; 99212; G0463

== ENCOUNTER 2024-07-08 07:16 | Outpatient (CLI) | payer MEDICARE, OTHER, SELFPAY ==
--- NOTE | ~2024-07-08 | MM_ITS ---
EXAMINATION: MM screening richard BI w jorge HISTORY: Screening TECHNIQUE: Craniocaudal and mediolateral oblique 3-D tomosynthesis images were obtained and synthetic 2-D images were generated. CAD analysis was submitted and interpreted. COMPARISON: Comparison to multiple prior studies sequentially, with oldest reviewed study dated 11/29. BREAST PARENCHYMAL COMPOSITION: Not Dense: The breasts are almost entirely fatty. FINDINGS: There is no evidence of suspicious mass, calcification, or architectural distortion to sugg est malignancy in either breast. There has been no suspicious interval change. IMPRESSION: 1. No mammographic evidence of malignancy. 2. Recommend routine screening mammography in one year. BI-RADS Category 1: Negative Reviewed, dictated and finalized at location B.
== END 2024-07-08 07:17 ==
LOC: MICIMG 07:17
PROVIDERS: PCP Family Medicine Adolescent Medicine; Visit Provider Obstetrics & Gynecology
DX: Z12.31 Encounter for screening mammogram for malignant neoplasm of breast (principal)
CPT/HCPCS: 77063; 77067

== ENCOUNTER 2024-07-30 08:06 | Emergency (ER) | payer MEDICARE, OTHER, SELFPAY ==
[2024-07-30 08:16] VITALS: BP 123/68; PULSE 81; RESP 16; TEMP 36.4; O2SAT 97
[2024-07-30 08:23] LABS: EDUAAPPEAR Clear; EDUABILI Negative (Negative); EDUABLOOD Trace (Negative); EDUACOLOR1 Yellow; EDUAGLUCOSE Negative (Negative); EDUAKETONE Negative (Negative); EDUALEUKO Trace (Negative); EDUANITRATE Negative (Negative); EDUAPROTEIN Trace (Negative); EDUAUROBILI 0.2
--- NOTE | 2024-07-30 08:44 | ED.FEMALEGU ---
HPI - Female Genitourinary General Chief complaint: Urogenital-Female Stated complaint: UTI SYMPTOMS Time Seen by Provider: 07/30/24 08:32 Source: patient, RN notes reviewed and old records reviewed Mode of arrival: ambulatory Limitations: no limitations History of Present Illness HPI Narrative: Patient presents today with urinary frequency since last night. Denies any additional symptoms. States she takes Azo daily. Last UTI was 2 months ago, was seen here at [facility] and was treated with Augmentin. Urine culture positive for E.coli with no resistance. Related Data Home Medications Medication Instructions Recorded Confirmed atorvastatin 10 mg tablet 10 mg PO DAILY 08/01/21 05/30/24 carvedilol 6.25 mg tablet 6.25 mg PO Q12H 02/12/22 05/30/24 znfrwsresny-fjs-xzfozpwqr-hrb 1 tablet PO DAILY 02/12/22 05/30/24 149-hyalur 500 mg-500 mg-66.7 mg tablet (Wlwrowogjpn-Waeouheiekd-PKC (with antiox)) hydrochlorothiazide 25 mg tablet 25 mg PO DAILY 02/12/22 05/30/24 multivitamin 1 tablet PO DAILY 02/12/22 05/30/24 calcium carbonate (Calcium 500) 500 mg PO DAILY 05/25/23 05/30/24 cetirizine 10 mg capsule (Zyrtec) 10 mg PO DAILY 05/25/23 05/30/24 amlodipine 10 mg tablet 10 mg PO DAILY 09/15/23 05/30/24 aspirin 81 mg capsule 81 mg PO DAILY 05/30/24 05/30/24 Allergies Allergy/AdvReac Type Severity Reaction Status Date / Time No Known Allergies Allergy Verified 05/30/24 16:00 Review of Systems Review of Systems: CONSTITUTIONAL: Denies body aches, fever, chills, or sweats. EYES: Denies visual changes, redness, or discharge. ENT: Denies rhinorrhea, congestion, sore throat, or otalgia. CARDIOVASCULAR: Denies chest pain, palpitations, or edema. RESPIRATORY: Denies cough or dyspnea. GASTROINTESTINAL: Denies abdominal pain, nausea, vomiting, or diarrhea. GENITOURINARY: Denies dysuria or hematuria. +frequency SKIN: Denies rash, itching, or wounds. MUSCULOSKELETAL: Denies back pain, joint pain, or myalgia. NEUROLOGIC: Denies headache, numbness, tingling, or weakness. PSYCH: Denies depression or anxiety. [facility] Past Medical History Medical History A-fib COVID-19 History of cyst of breast (~1995) Lumbar spondylolysis Mitral valve prolapse Sleep apnea Surgical History Surgical History History of 2 sections (~1978) 1980 History of cardiac radiofrequency ablation History of D&C (~2009) History of dental surgery abcess cyst removed from gum History of tubal ligation (~1981) Family History Family History Mother Cancer Sibling Cancer Grandparent Arthritis Social History Social History Smoking status: Never smoker Second hand tobacco smoke exposure: No Alcohol intake: current Substance use: never Substance use type: does not use Living arrangements: alone Occupation/Education: retired Gender identity (if verbalized by the patient): Female Comments At time of signature, I have reviewed and agree with nursing past medical, surgical, social and family history unless otherwise noted. Please see nursing chart for further information. There is no relevant family history pertinent to the presenting complaint Exam Narrative: GENERAL: Well-appearing, well-nourished, and in no acute distress. HEAD: Normocephalic, atraumatic. EYES: EOMI. No redness or drainage. Conjunctivae normal. ENT: Mucous membranes pink and moist. NECK: Normal AROM. CHEST: No respiratory distress. EXTREMITIES: Normal range of motion. No edema. SKIN: Warm, dry, no rash. Capillary refill normal. Normal skin turgor. NEURO: No focal deficits. Alert and oriented x3. Gait steady. PSYCH: Normal affect. No signs of depression or anxiety. Course Course Level of
== END 2024-07-30 08:49 | disposition home or self-care (01) ==
PROVIDERS: Emergency Provider Nurse Practitioner; PCP Family Medicine Adolescent Medicine
DX: N30.01 Acute cystitis with hematuria (principal); I48.91 Unspecified atrial fibrillation; I34.1 Nonrheumatic mitral (valve) prolapse; Z86.16 Personal history of COVID-19
CPT/HCPCS: 81003; 87086; 99213; G0463

== ENCOUNTER 2024-12-19 15:14 | Emergency (ER) | payer MEDICARE, OTHER, SELFPAY ==
--- NOTE | 2024-12-19 15:30 | ED_ITS ---
HPI - URI/Sore Throat General Chief Complaint: Upper Respiratory Infection Stated Complaint: Sore Throat Time Seen by Provider: 12/19/24 15:31 Source: patient Mode of arrival: ambulatory Limitations: no limitations History of Present Illness HPI Narrative: Yuni is a 74-year-old female patient presenting to the clinic today with complaints of a sore throat, cough, congestion, in general not feeling well that started this morning. She reports she felt feverish this morning. Denies any shortness of breath or chest pain MD elicited complaint: sore throat and nasal congestion Related Data Home Medications ?Medication ?Instructions ?Recorded ?Confirmed ?Last Taken ?Type atorvastatin 10 mg tablet 10 mg PO DAILY 08/01/21 05/30/24 Unknown History carvedilol 6.25 mg tablet 6.25 mg PO Q12H 02/12/22 05/30/24 Unknown History xoytyutovpv-akp-[id number]-hrb 1 tablet PO DAILY 02/12/22 05/30/24 Unknown History 149-hyalur 500 mg-500 mg-66.7 mg tablet (Ffccvrfkmod-Lbxxhziqvyi-CVF (with antiox)) hydrochlorothiazide 25 mg tablet 25 mg PO DAILY 02/12/22 05/30/24 Unknown History multivitamin 1 tablet PO DAILY 02/12/22 05/30/24 Unknown History calcium carbonate (Calcium 500) 500 mg PO DAILY 05/25/23 05/30/24 Unknown History cetirizine 10 mg capsule (Zyrtec) 10 mg PO DAILY 05/25/23 05/30/24 Unknown History amlodipine 10 mg tablet 10 mg PO DAILY 09/15/23 05/30/24 Unknown History aspirin 81 mg capsule 81 mg PO DAILY 05/30/24 05/30/24 Unknown History Allergies Allergy/AdvReac Type Severity Reaction Status Date / Time No Known Allergies Allergy Verified 12/19/24 15:33 Review of Systems Review of Systems: Pertinent positives per HPI. Patient denies any rash, headache, visual changes, dizziness, shortness of breath, chest pain, palpitations, nausea, vomiting, sherri rrhea, constipation, abdominal pain, or any urinary issues. [facility] Past Medical History Medical History COVID-19 Mitral valve prolapse A-fib Lumbar spondylolysis Sleep apnea History of cyst of breast (~1995) Surgical History Surgical History History of cardiac radiofrequency ablation History of dental surgery abcess cyst removed from gum History of D&C (~2009) History of tubal ligation (~1981) History of 2 sections (~1978) 1981 Family History Family History Mother Cancer Sibling Cancer Grandparent Arthritis Social History Social History Smoking status: Never smoker Second hand tobacco smoke exposure: No Alcohol intake: current Substance use: never Substance use type: does not use Living arrangements: alone Occupation/Education: retired Gender identity (if verbalized by the patient): Female Comments At the time of my signature, I reviewed and agree with the nursing past medical, surgical, social, and family history. There is no relevant family history pertinent to the patient complaint. Exam Narrative: General: Well-developed, well nourished, in no apparent distress Head: Normocephalic, atraumatic Eyes: Pupils equally round and reactive to light bilaterally, EOM intact, sclera and conjunctive clear, no discharge, lids normal Ears: TMs intact and clear, ear canals clear, no drainage, grossly hearing normal. Nose: Nares patent, no discharge, no inflammation, no sinus tenderness. Mouth: Oral pharynx without lesions or masses, good dentition, MMM. Neck: Supple, trachea midline, no enlargement of anterior or posterior cervical nodes, no thyroid masses or goiter palpable. Cardio: Regular rate and rhythm, s1 and s2 normal, no murmur appreciated. Resp: Clear to auscultation bilaterally, no rhonchi, rales, wheezing or rubs Course Course Emergency Course: Portions of this record may have been created with voice recognition software. Level of Care: Express Care Visit Vital Signs Vital signs: Vital Signs Oxygen Delivery Room Air 12/19/24 15:31 Temperature 36.4 C L 12/19/24 15:35 Pulse Rate 76 12/19/24 15:35 Respiratory Rate 16 12/19/24 15:35 Blood Pressure 129/66 12/19/24 15:35 Pulse Oximetry 98 12/19/24 15:35 Oxygen Delivery Room Air 12/19/24 15:31 Vital signs reviewed MDM - URI/Sore Throat MDM Narrative Medical decision making narrative: At the time of visit patient is resting comfortably on the exam table. Patient appears to be nontoxic. Labs: COVID, influenza, and strep test were performed and negative in the clinic today. Plan: I suspect patient has URI/pharyngitis. Supportive measures were discussed with the patient and they voiced understanding discharge instructions and agrees to treatment plan. Return precautions reviewed Differential Diagnosis Differential diagnosis: Likely upper respiratory infection, otitis media, sinusitis, viral infection, bronchitis, influenza, pharyngitis and other (COVID) Discharge Plan Discharge Clinical Impression: URI (upper respiratory infection) Qualifiers: URI type: unspecified URI Qualified Code(s): J06.9 - Acute upper respiratory infection, unspecified Pharyngitis Qualifiers: Pharyngitis/tonsillitis etiology: unspecified etiology Qualified Code(s): J02.9 - Acute pharyngitis, unspecified Patient Disposition: Home, Self-Care Condition: Stable Instructions: Antibiotic Form, Pharyngitis (ED), Cold Symptoms (ED) Additional Instructions: COVID, influenza, and strep test were negative in the clinic today. May take Coricidin HBP for cold/flu symptoms Increase fluids and stay well hydrated Tylenol/motrin for pain/fever Flonase and OTC antihistamines as directed Vicks vapor rub to open sinuses Sinus rinses for congestion Cepacol spray, cough drops, throat lozenges, warm tea with honey/lemon, gargle salt water to soothe throat BRAT diet for diarrhea Clear liquids x 24 hours then advance as tolerated for nausea/vomiting Go to the ED if you develop a worsening in your condition- high fever not controlled by Tylenol or Motrin, dehydration, weakness, lethargy, shortness of breath, or chest pain. Follow up with your PCP in 3-5 days if symptoms persist. Patient Language: Swazi Prescriptions: No Action amlodipine 10 mg tablet 10 mg PO DAILY aspirin 81 mg Capsule 81 mg PO DAILY atorvastatin 10 mg tablet 10 mg PO DAILY carvedilol 6.25 mg tablet 6.25 mg PO Q12H Rx Instructions: must administer with a meal/food hydrochlorothiazide 25 mg tablet 25 mg PO DAILY multivitamin Tablet 1 tablet PO DAILY [id number]-[id number] [Koysfy-Ofbhu-[facility] (with antiox)] 500-500-66.7 mg tablet 1 tablet PO DAILY Zyrtec 10 mg capsule 10 mg PO DAILY calcium carbonate [Calcium 500] 500 mg calcium (1,250 mg) tablet,chewable 500 mg PO DAILY losartan 100 mg tablet See Rx Instructions .ROUTE .COMPLEX Qty: 90 2RF Dose Instruction: TAKE 1 TABLET DAILY Rx Instructions: TAKE 1 TABLET DAILY Follow-up/Referrals: Hugh Cho MD [Primary Care Provider] - Time of Disposition: 15:46 Quality NIHSS Nursing Documentation ED NIHSS nursing documentation: reviewed/agree
[2024-12-19 15:35] VITALS: BP 129/66; PULSE 76; RESP 16; TEMP 36.4; O2SAT 98
[2024-12-19 15:47] LABS: EDCOVIDSCREEN Negative (Negative); EDINFLUASCREEN Negative (Negative); EDINFLUBSCREEN Negative (Negative); EDSTREPNEGPOS1 Negative (Negative)
== END 2024-12-19 15:49 | disposition home or self-care (01) ==
PROVIDERS: Emergency Provider Nurse Practitioner Family; PCP Family Medicine Adolescent Medicine
DX: J06.9 Acute upper respiratory infection, unspecified (principal); J02.9 Acute pharyngitis, unspecified; Z20.822 Contact with and (suspected) exposure to COVID-19; I48.91 Unspecified atrial fibrillation; I34.1 Nonrheumatic mitral (valve) prolapse; Z86.16 Personal history of COVID-19; Z79.82 Long term (current) use of aspirin
CPT/HCPCS: 87081; 87426; 87804; 87880; 99213; G0463

== ENCOUNTER 2025-02-20 16:33 | Emergency (ER) | payer MEDICARE, OTHER, SELFPAY ==
[2025-02-20 16:49] VITALS: BP 124/78; PULSE 68; RESP 16; TEMP 36.9; O2SAT 98
--- NOTE | 2025-02-20 17:19 | ED_ITS ---
HPI - Female Genitourinary General Chief complaint: Urogenital-Female Stated complaint: Uti Symptoms Source: patient and RN notes reviewed Mode of arrival: ambulatory Limitations: no limitations History of Present Illness HPI Narrative: 74-year-old female presented for complaint of urinary frequency and urgency with voiding small amounts. Onset today. Denies hematuria, nausea, vomiting, abdominal pain, flank pain, constipation, diarrhea, fevers or chills. Related Data Home Medications ?Medication ?Instructions ?Recorded ?Confirmed ?Last Taken ?Type atorvastatin 10 mg tablet 10 mg PO DAILY 08/01/21 02/20/25 Unknown History carvedilol 6.25 mg tablet 6.25 mg PO Q12H 02/12/22 02/20/25 Unknown History hydrochlorothiazide 25 mg tablet 25 mg PO DAILY 02/12/22 02/20/25 Unknown History multivitamin 1 tablet PO DAILY 02/12/22 02/20/25 Unknown History calcium carbonate (Calcium 500) 500 mg PO DAILY 05/25/23 02/20/25 Unknown History cetirizine 10 mg capsule (Zyrtec) 10 mg PO DAILY 05/25/23 02/20/25 Unknown History amlodipine 10 mg tablet 10 mg PO DAILY 09/15/23 02/20/25 Unknown History aspirin 81 mg capsule 81 mg PO DAILY 05/30/24 02/20/25 Unknown History Allergies Allergy/AdvReac Type Severity Reaction Status Date / Time No Known Allergies Allergy Verified 02/20/25 16:50 Review of Systems Review of Systems: CONSTITUTIONAL: Denies body aches, fever, chills, or sweats. CARDIOVASCULAR: Denies chest pain, palpitations, or edema. RESPIRATORY: Denies cough or dyspnea. GASTROINTESTINAL: Denies abdominal pain, nausea, vomiting, or diarrhea. GENITOURINARY: Reports frequency, urgency, denies dysuria, hematuria, flank pain SKIN: Denies rash MUSCULOSKELETAL: Denies back pain or myalgia. [facility] Past Medical History Medical History COVID-19 Mitral valve prolapse A-fib Lumbar spondylolysis Sleep apnea History of cyst of breast (~1995) Surgical History Surgical History History of cardiac radiofrequency ablation History of dental surgery abcess cyst removed from gum History of D&C (~2009) History of tubal ligation (~1981) History of 2 sections (~1978) 1980 Family History Family History Mother Cancer Sibling Cancer Grandparent Arthritis Social History Social History Smoking status: Never smoker Second hand tobacco smoke exposure: No Alcohol intake: current Substance use: never Substance use type: does not use Living arrangements: alone Occupation/Education: retired Gender identity (if verbalized by the patient): Female Comments At time of signature, I have reviewed and agree with nursing past medical, surgical, social and family history unless otherwise noted. Please see nursing chart for further information. There is no relevant family history pertinent to the presenting complaint Exam Narrative: GENERAL: Well-appearing ENT: Mucous membranes pink and moist. NECK: Normal AROM. Supple. CHEST: No respiratory distress. Clear to auscultation. HEART: Regular rate and rhythm. ABDOMEN: Soft, nontender, nondistended, normal active bowel sounds. No CVA tenderness SKIN: Warm, dry, no rash. NEURO: No focal deficits. Alert and oriented x3. Gait steady. PSYCH: Normal affect. Course Course Emergency Course: Patient is aware of diagnosis, understands and agrees to treatment plan. Anticipatory guidance given. Patient agrees to follow-up as directed and is aware of reasons to seek care at the emergency department. Portions of this record may have been created with voice recognition software Level of Care: Express Care Visit Vital Signs Vital signs: Vital Signs Temperature 98.5 F 02/20/25 16:49 Pulse Rate 68 02/20/25 16:49 Respiratory Rate 16 02/20/25 16:49 Blood Pressure 124/78 02/20/25 16:49 Pulse Oximetry 98 02/20/25 16:49 Temperature 98.5 F 02/20/25 16:49 Pulse Rate 68 02/20/25 16:49 Respiratory Rate 16 02/20/25 16:49 Blood Pressure 124/78 02/20/25 16:49 Pulse Oximetry 98 02/20/25 16:49 Reviewed MDM - Female Genitourinary MDM Narrative Medical decision making narrative: Discussed physical exam findings and urine dip. Shared decision making will send abx and pt will call for urine result. Advised supportive measures and signs/symptoms to go to the ER. Pt is appropriate for outpt treatment and f/u. Differential Diagnosis Differential diagnosis: Likely urinary tract infection, vaginitis and cystitis Discharge Plan Discharge Clinical Impression: Urinary frequency Patient Disposition: Home Condition: Stable Instructions: Antibiotic Form, Urinary Tract Infection in Women (ED) Additional Instructions: Take the antibiotic as prescribed The urine will be sent of for a culture to identify what type of bacteria is causing your infection. If the culture shows that the antibiotic will not get rid of your infection, you will be notified and a new antibiotic will be called in for you. Increase water intake you will need to follow up with your PCP, call to schedule an appointment. Go to the ER for any worsening symptoms or concerns Patient Language: Nicaraguan Prescriptions: New amoxicillin-pot clavulanate [Augmentin] 500-125 mg tablet 1 tablet PO Q12H 5 Days Qty: 10 0RF No Action amlodipine 10 mg tablet 10 mg PO DAILY aspirin 81 mg Capsule 81 mg PO DAILY atorvastatin 10 mg tablet 10 mg PO DAILY carvedilol 6.25 mg tablet 6.25 mg PO Q12H Rx Instructions: must administer with a meal/food hydrochlorothiazide 25 mg tablet 25 mg PO DAILY multivitamin Tablet 1 tablet PO DAILY Zyrtec 10 mg capsule 10 mg PO DAILY calcium carbonate [Calcium 500] 500 mg calcium (1,250 mg) tablet,chewable 500 mg PO DAILY losartan 100 mg tablet See Rx Instructions .ROUTE .COMPLEX Qty: 90 2RF Dose Instruction: TAKE 1 TABLET DAILY Rx Instructions: TAKE 1 TABLET DAILY Follow-up/Referrals: PHYSICIAN,EMERGENCY VEHICLE DRIVER [Primary Care Provider] -
[2025-02-20 17:36] LABS: EDUAAPPEAR Clear; EDUABILI Negative (Negative); EDUABLOOD Negative (Negative); EDUACOLOR1 Yellow; EDUAGLUCOSE Negative (Negative); EDUAKETONE Trace (Negative); EDUALEUKO Trace (Negative); EDUANITRATE Negative (Negative); EDUAPH 5.5; EDUAPROTEIN Negative (Negative); EDUASPGRAVITY 1.025; EDUAUROBILI 0.2
== END 2025-02-20 17:30 | disposition home or self-care (01) ==
PROVIDERS: Emergency Provider Nurse Practitioner Family
DX: R35.0 Frequency of micturition (principal); I48.91 Unspecified atrial fibrillation; I34.1 Nonrheumatic mitral (valve) prolapse; M43.06 Spondylolysis, lumbar region; Z86.16 Personal history of COVID-19; Z79.82 Long term (current) use of aspirin
CPT/HCPCS: 81003; 87086; 99213; G0463

== ENCOUNTER 2025-03-10 11:10 | Emergency (ER) | payer MEDICARE, OTHER, SELFPAY ==
--- NOTE | ~2025-03-10 | XR_ITS ---
HISTORY: fall yest, pain posterior Lt shoulder, posterior Lt ribs COMPARISON: None TECHNIQUE: 3 views of the left ribs along with a frontal view of the chest FINDINGS: No acute displaced fracture is appreciated. Bone mineralization is age-appropriate. The cardiomediastinal silhouette is unremarkable. The lungs are clear. IMPRESSION: No acute displaced left-sided rib fracture. The lungs are clear. Reviewed, dictated and finalized at location A.
--- NOTE | ~2025-03-10 | XR_ITS ---
HISTORY: fall yest, pain posterior Lt shoulder, posterior Lt ribs COMPARISON: 02/12/2022 TECHNIQUE: 3 views of the left shoulder were performed FINDINGS: No acute fracture. The glenohumeral joint space is maintained. Upsloping of the distal margin of the left clavicle is identified suggesting acromioclavicular joint injury. The visualized portion of the adjacent left lung is clear. The humeral head is high riding within the glenoid fossa. IMPRESSION: No acute fracture or anterior dislocation. Findings suggesting possible acromioclavicular joint injury (unchanged dating back to 2021). High riding humeral head suggests underlying rotator cuff tear, also unchanged from March 2022 examinat ion. Reviewed, dictated and finalized at location A. IMPRESSION: No acute fracture or anterior dislocation. Findings suggesting possible acromioclavicular joint injury (unchanged dating b ack to 2021). High riding humeral head suggests underlying rotator cuff tear, also unchanged from March 2022 examination.
[2025-03-10 11:22] VITALS: BP 114/64; PULSE 66; RESP 16; TEMP 36.7; O2SAT 100
--- NOTE | 2025-03-10 11:50 | ED_ITS ---
HPI - Fall General Chief Complaint: Extremity Injury, Upper Stated Complaint: L SHOULDER/L HIP/L ARM INJURY / L FINGER LACERATIO Time Seen by Provider: 03/10/25 12:13 Source: patient and RN notes reviewed Mode of arrival: ambulatory Limitations: no limitations History of Present Illness HPI Narrative: 74-year-old female presents concern for a fall. Reports yesterday she fell in her hallway at home and hit her left shoulder on the corner of a wall. She reports she since has had some left shoulder pain, rib pain, pain under her left breast. She also reports she sustained skin tear to the palmar aspect of the 5th digit of her left hand. She denies decreased strength, sensation, range of motion in the extremity or digit. MD complaint: fall Related Data Home Medications ?Medication ?Instructions ?Recorded ?Confirmed ?Last Taken ?Type atorvastatin 10 mg tablet 10 mg PO DAILY 08/01/21 03/10/25 Unknown History carvedilol 6.25 mg tablet 6.25 mg PO Q12H 02/12/22 03/10/25 Unknown History hydrochlorothiazide 25 mg tablet 25 mg PO DAILY 02/12/22 03/10/25 Unknown History multivitamin 1 tablet PO DAILY 02/12/22 03/10/25 Unknown History calcium carbonate (Calcium 500) 500 mg PO DAILY 05/25/23 03/10/25 Unknown History cetirizine 10 mg capsule (Zyrtec) 10 mg PO DAILY 05/25/23 03/10/25 Unknown History amlodipine 10 mg tablet 10 mg PO DAILY 09/15/23 03/10/25 Unknown History aspirin 81 mg capsule 81 mg PO DAILY 05/30/24 03/10/25 Unknown History Allergies Allergy/AdvReac Type Severity Reaction Status Date / Time No Known Allergies Allergy Verified 03/10/25 11:19 Review of Systems Review of Systems: CONSTITUTIONAL: Denies malaise, chills, sweats, or fever. SKIN: Denies rash or itching. Reports skin tear to the palmar aspect of the 5th digit of the left hand MUSCULOSKELETAL: Reports left shoulder pain, rib pain NEUROLOGIC: Denies numbness, weakness All systems reviewed & are unremarkable except as noted in HPI and below PMFSH Past Medical History Medical History COVID-19 Mitral valve prolapse A-fib Lumbar spondylolysis Sleep apnea History of cyst of breast (~1995) Surgical History Surgical History History of cardiac radiofrequency ablation History of dental surgery abcess cyst removed from gum History of D&C (~2009) History of tubal ligation (~1981) History of 2 sections (~1978) 1980 Family History Family History Mother Cancer Sibling Cancer Grandparent Arthritis Social History Social History Smoking status: Never smoker Second hand tobacco smoke exposure: No Alcohol intake: current Substance use: never Substance use type: does not use Living arrangements: alone Occupation/Education: retired Gender identity (if verbalized by the patient): Female Comments At time of signature, agree with nursing past medical, surgical, social and family history. There is no relevant family history pertinent to the presenting complaint Exam Narrative: GENERAL: Well-appearing, well-nourished, and in no acute distress. HEAD: Normocephalic, atraumatic. EYES: PERRLA, conjunctivae clear NECK: Supple. CHEST: Speaks in full sentences. No respiratory distress. HEART: Regular rate and rhythm. Normal and equal peripheral pulses. EXTREMITIES: Left upper extremity has grossly normal strength and sensation, grossly normal range of motion. No edema or ecchymosis. Normal sensation with sensitivity to light touch and pain. No point tenderness. No open wounds, no skin tenting, no devitalized tissue or atrophy, no trophic changes, no obvious deformity, alignment normal, nearby joints and structures intact. Distal pulses palpable and equal bilaterally, skin warm, dry, pink. Capillary refill less than 3 seconds. SKIN: Warm, dry. 2.5 by 0.5 cm superficial skin tear noted to the palmar aspect of the 5th digit of the left hand with beefy red tissue bed. NEURO: Alert and oriented x3. PSYCH: Normal mood and affect Course Course Emergency Course: Patient is aware of diagnosis, understands and agrees to treatment plan. Anticipatory guidance given. Patient agrees to follow-up as directed and is aware of reasons to seek care at the emergency department. Portions of this record may have been created with voice recognition software Level of Care: Express Care Visit Vital Signs Vital signs: Vital Signs Temperature 98.1 F 03/10/25 11:22 Pulse Rate 66 03/10/25 11:22 Respiratory Rate 16 03/10/25 11:22 Blood Pressure 114/64 03/10/25 11:22 Pulse Oximetry 100 03/10/25 11:22 Temperature 98.1 F 03/10/25 11:22 Pulse Rate 66 03/10/25 11:22 Respiratory Rate 16 03/10/25 11:22 Blood Pressure 114/64 03/10/25 11:22 Pulse Oximetry 100 03/10/25 11:22 Reviewed. MDM - Fall MDM Narrative Medical decision making narrative: Patients injury and pain is consistent with musculoskeletal etiology. No signs of neurological or vascular compromise on exam. Compartments and tissues are soft without signs of compartment syndrome. Pain is felt appropriate for further evaluation on an outpatient basis. Imaging Data Radiologist's impression: HISTORY: fall yest, pain posterior Lt shoulder, posterior Lt ribs COMPARISON: None TECHNIQUE: 3 views of the left ribs along with a frontal view of the chest FINDINGS: No acute displaced fracture is appreciated. Bone mineralization is age-appropriate. The cardiomediastinal silhouette is unremarkable. The lungs are clear. IMPRESSION: No acute displaced left-sided rib fracture. The lungs are clear. HISTORY: fall yest, pain posterior Lt shoulder, posterior Lt ribs COMPARISON: 02/12/2022 TECHNIQUE: 3 views of the left shoulder were performed FINDINGS: No acute fracture. The glenohumeral joint space is maintained. Upsloping of the distal margin of the left clavicle is identified suggesting acromioclavicular joint injury. The visualized portion of the adjacent left lung is clear. The humeral head is high riding within the glenoid fossa. IMPRESSION: No acute fracture or anterior dislocation. Findings suggesting possible acromioclavicular joint injury (unchanged dating back to 2021). High riding humeral head suggests underlying rotator cuff tear, also unchanged from March 2022 examination. Critical Care Time Critical Care Time Critical Care Time: No Discharge Plan Discharge Clinical Impression: Acute shoulder pain, Skin tear Patient Disposition: Home Condition: Stable Instructions: Antibiotic Form, Skin Tear (ED) Additional Instructions: Wash your wound twice a day with soap and water. You can apply Neosporin twice daily. Cover with a bandage when it is at risk for contamination, otherwise can leave it open to air. Avoid soaking in bathtubs, hot tubs, swimming pools. Avoid activities that cause pain until the pain subsides. Ice painful areas 20-30 minutes 4-6 times a day Tylenol for pain Ibuprofen per package directions as needed for inflammation Follow up with your primary care provider if the condition is not improving within 1 week. If the condition worsens with numbness, tingling, decrease sensation with weakness seek treatment in the emergency room immediately. Patient Language: Bolivian Prescriptions: No Action amlodipine 10 mg tablet 10 mg PO DAILY aspirin 81 mg Capsule 81 mg PO DAILY atorvastatin 10 mg tablet 10 mg PO DAILY carvedilol 6.25 mg tablet 6.25 mg PO Q12H Rx Instructions: must administer with a meal/food hydrochlorothiazide 25 mg tablet 25 mg PO DAILY multivitamin Tablet 1 tablet PO DAILY Zyrtec 10 mg capsule 10 mg PO DAILY calcium carbonate [Calcium 500] 500 mg calcium (1,250 mg) tablet,chewable 500 mg PO DAILY losartan 100 mg tablet See Rx Instructions .ROUTE .COMPLEX Qty: 90 2RF Dose Instruction: TAKE 1 TABLET DAILY Rx Instructions: TAKE 1 TABLET DAILY Follow-up/Referrals: Hugh Cho MD [Primary Care Provider] - Time of Disposition: 12:26
== END 2025-03-10 12:32 | disposition home or self-care (01) ==
PROVIDERS: Emergency Provider Nurse Practitioner; PCP Family Medicine Adolescent Medicine
DX: M25.512 Pain in left shoulder (principal); M25.552 Pain in left hip; S61.217A Laceration without foreign body of left little finger without damage to nail, initial encounter; I48.91 Unspecified atrial fibrillation; Z79.899 Other long term (current) drug therapy; Z79.82 Long term (current) use of aspirin; W18.30XA Fall on same level, unspecified, initial encounter; Y92.009 Unspecified place in unspecified non-institutional (private) residence as the place of occurrence of the external cause
CPT/HCPCS: 71101; 73030; 99214; G0463

== ENCOUNTER 2025-03-28 08:37 | Outpatient (CLI) | payer MEDICARE, OTHER, SELFPAY ==
--- NOTE | ~2025-03-28 | US_ITS ---
LEFT LOWER EXTREMITY VENOUS ULTRASOUND Ordering provider: Dejon Vazquez DO History: . M79.662 - Pain in left lower leg . Comparison: None. FINDINGS: --COMMON FEMORAL: Patent and free of thrombus. Normal compressibility, phasic flow and augmentation. --PROXIMAL SUPERFICIAL FEMORAL: Patent and free of thrombus. Normal compressibility, phasic flow and augmentation. --DISTAL SUPERFICIAL FEMORAL: Patent and free of thrombus. Normal compressibility, phasic flow and au gmentation. --POPLITEAL: Patent and free of thrombus. Normal compressibility, phasic flow and augmentation. --POSTERIOR TIBIAL: Patent and free of thrombus. Normal compressibility, phasic flow and augmentation . IMPRESSION: Negative left lower extremity venous US. No deep vein thrombosis. Reviewed, dictated and finalized at location A.
--- OUTSIDE RECORDS SUMMARY | 2025-03-28 08:43 | XMS_ITS | Clinical Summary ---
Author Organization [facility] at [facility] [place] Address [address] [place] [address] Care Team Providers Care Groundskeeping Maintenance Worker Name Role Phone Hugh Cho MD Primary Care Prov ider Harman Lemus MD Unavailable [phone] Allergies No known active allergies Medications aspirin 325 mg enteric coated tablet 81 mg every other day 0 04/22/2019 Active calcium citrate 250 mg calcium tablet Take by mouth Active omega 9-eed-psu-fish oil 1,000 mg (120 mg-180 mg) capsule Active glucosamine-pool droit-vit C-Mn capsule Take by mouth Active losartan (COZAAR) 100 mg tablet Take 1 tablet (100 mg total) by mouth daily 90 tablet 1 12/19/2020 Active amLODIPine (NORVASC) 10 mg tablet TAKE 1 TABLET DAILY 90 tablet 1 12/24/2020 Active Bystolic 5 mg tablet TAKE 1 TABLET DAILY 90 tablet 1 04/05/2021 Active atorvastatin (LIPITOR) 10 mg tablet TAKE 1 TABLET DAILY 90 tablet 1 04/05/2021 Active hydroCHLOROthiaz danelle (HYDRODIURIL) 25 mg tablet TAKE 1 TABLET DAILY 90 tablet 1 04/05/2021 Active Active Problems Problem Noted Date Diagnosed Date Insomnia 11/03/2019 Mixed hyperlipidemia 08/23/2019 Assessment & Plan (12/18/2020 12:45 PM NUTRITION CLUB AMBASSADOR): 10 yr risk sig. LDL < 70 Now...Continue statin Assessment & Plan (05/23/2020 8:24 AM CDT): Continue statins. Check fasting lipid panel and CMP Assessment & Plan (11/23/2019 10:55 AM NUTRITION CLUB AMBASSADOR): Continue Lipitor. Tolerating it well. Follow-up lipid panel good Assessment & Plan (08/23/2019 3:41 PM CDT): Ten year calculated risk 9.4%. Statin reasonable. Begin Lipitor 10 mg daily Bradycardia 06/16/2019 Assessment & Plan (05/23/2020 8:24 AM CDT): Resolved off Bystolic Assessment & Plan (06/16/2019 3:12 PM CDT): Still symptomatic. Discontinue Bystolic increase Norvasc to 10 mg daily PVC's (premature ventricular contractions) 06/16 Overview (06/16/2019): Frequent outflow track with exercise. Will wear a 2 week monitor to confirm symptoms are related to this and get results from ER visit at [place] Assessment & Plan (11/28/2020 8:31 AM NUTRITION CLUB AMBASSADOR): Extremely low asymptomatic burden no need for further therapy Assessment & Plan (05/23/2020 8:24 AM CDT): Very rare symptoms. No structural heart disease. No indication for further treatment. Assessment & Plan (11/23/2019 10:56 AM NUTRITION CLUB AMBASSADOR): Asymptomatic. Assessment & Plan (08/23/2019 3:40 PM CDT): Asymptomatic no further treatment Assessment & Plan (06/16/2019 3:20 PM CDT): Frequent outflow track of ectopy with exercise. No history of syncope. No family history of sudden cardiac . Discussed with patient might be ablatable easily. Maybe this is the main focus not the PAF. Will have her wear monitor Paroxysmal atrial fibrillation 04/29/2019 Assessment & Plan (11/28/2020 8:31 AM NUTRITION CLUB AMBASSADOR): Excellent results after PVI about 18 months ago. No need for antiarrhythmics or anticoagulants Assessment & Plan (05/23/2020 8:24 AM CDT): Excellent results after PVI. No indication for antiarrhythmics or anticoagulation. Assessment & Plan (11/23/2019 10:56 AM NUTRITION CLUB AMBASSADOR): Excellent results from PVI. No anticoagulation antiarrhythmics needed Assessment & Plan (08/23/2019 3:40 PM CDT): Excellent results with cryo PVI. Six weeks ago. DC Eliquis. Assessment & Plan (07/21/2019 1:17 PM CDT): Doing excellent. Continue Eliquis for at least 1 month. Chads score 1 Assessment & Plan (06/16/2019 3:12 PM CDT): Symptomatic PAF. Does not want to try antiarrhythmic. Doctor in detail about PVI. Discussed risks not limited to bleeding perforation stroke esophageal injury diaphragmatic paralysis. She wished to proceed. Will require 1 month of anticoagulation begin Eliquis 5 mg twice daily do not take morning of procedure. Will need cardiac CT scan. Dyspnea 04/29/2019 Sleep apnea 04/28/2019 Palpitations 04/28/2019 Essential hypertension 04/28/2019 Assessment & Plan (11/28/2020 8:31 AM NUTRITION CLUB AMBASSADOR): Well controlled Assessment & Plan (11/23/2019 10:56 AM NUTRITION CLUB AMBASSADOR): Prior creatinine and potassium normal. CT chest without coarct. Increase Norvasc to 10 mg daily Assessment & Plan (08/23/2019 3:40 PM CDT): Well controlled on amlodipine. Assessment & Plan (07/21/2019 1:17 PM CDT): Amlodipine resume. Continue other meds. Deep venous thrombosis 04/28/2019 Surgical History Surgery Date Site/Laterality Comments SECTION OVARY SURGERY BREAST SURGERY DILATION AND CURETTAGE, DIAGNOSTIC / THERAPEUTIC ABLATION heart Medical History Medical History Date Comments Palpitations ELEAZAR (obstructive sleep apnea) DVT (deep venous thrombosis) (HCC) PAF (paroxysmal atrial fibrillation) (HCC) Hypertension Arthritis Osteopenia Family History Medical History Relation Name Comments Cancer Brother Lung cancer Brother No Known Problems Father Breast cancer Mother Cancer Mother Relation Name Status Comments Brother Father Mother Social History Tobacco Use Types Packs/Day Years Used Date Smoking Tobacco: Never Tobacco Cessation:Counseling Given: No Alcohol Use Standard Drinks/Week Comments Yes 0 (1 standard drink = 0.6 oz pur e alcohol) Personal Safety Answer Date Recorded Getting School Help Needed Not on file 01/10 Comments Unknown Sex and Gender Information Value Date Recorded Sex Assigned at Not on file Legal Sex Female 4:45 AM NUTRITION CLUB AMBASSADOR Gender Identity Female 11/23/2020 9:19 PM NUTRITION CLUB AMBASSADOR Sexual Orientation Straight 11/23/2020 9: 19 PM NUTRITION CLUB AMBASSADOR Obstetrics History Last Filed Vital Signs Vital Sign Reading Time Taken Comments Blood Pressure 130/70 11/28/2020 8:16 AM NUTRITION CLUB AMBASSADOR Pulse 60 11/28/2020 8:16 AM NUTRITION CLUB AMBASSADOR Temperature 36.6 C (97.8 F) 11/28/2020 8:16 AM NUTRITION CLUB AMBASSADOR Respiratory Rate - - Oxygen Saturation 98% 11/23/2019 10:38 AM NUTRITION CLUB AMBASSADOR Inhaled Oxygen Concentration - - Weight 83 kg (183 lb) 11/28/2020 8:16 AM NUTRITION CLUB AMBASSADOR Height 167.6 cm (5' 6 ) 11/28/2020 8:16 AM NUTRITION CLUB AMBASSADOR Body Mass Index 29.54 11/28/2020 8:16 AM NUTRITION CLUB AMBASSADOR Plan of Treatment Not on file Insurance MEDICARE [facility]ICARE [facility] MEDICARE [facility] MEDICARE Advance Directives For more information, please contact: [phone] Documents on File Type Date Recorded Patient Casino Host Expl anation ADVANCE DIRECTIVE 07/11/2019 12:00 AM AMRIK PERRY WILL ADVANCE DIRECTIVE 07/11/2019 12:00 AM YENI Lieberman OF SERVICE AND REPAIR SUPERVISOR FINANCIAL/MEDICAL Care Teams Groundskeeping Maintenance Worker Relationship Specialty Start Date End Date Hugh Cho MD PCP - General Family Medicine 06/16/19 Harman Lemus MD Plastic And Reconstructive Surgeon Cardiovascular Disease 07/13/19
--- OUTSIDE RECORDS SUMMARY | 2025-03-28 08:43 | XMS_ITS | Clinical Summary ---
Author Organization [facility] Address [address] [place] [id number] Care Team Providers Care Director Volunteer Services Name Role Phone Unavailable Primary Care Provider Unavailabl e Immunizations Immunization Administration Dates Next Due Covid-19, Mrna, Lnp-s, Pf, 30 Mcg/0.3 Ml Dose (P fizer) 08/23/2021 Social History Tobacco Use Types Packs/Day Years Used Date Smoking Tobacco: Never Assessed Comments Unknown Sex and Gender Information Value Date Recorded Sex Assigned at Not on file Legal Sex Female 1:47 PM CDT Gender Identity Not on file Sexual Orientation Not on file Plan of Treatment Health Maintenance Due Date Last Done Comments Hepatitis C Virus (HCV) Screening 1950 TdaP Immunization 1950 Colonoscopy 1996 Colorectal Cancer Screening 1996 Cologuard 2001 Immunochemical Fecal Occult Blood 2001 Pneumococcal Immunization (5 0+ years) (1 of 1 - PCV) 2001 Zoster Immunization (1 of 2) 2001 Influenza Immunization (#1) 2024 SARS-COV-2 Immunization ( season) 2024 08/23/2021, 02/01/2021, 01/11/2021 Respiratory Syncytial Virus (RSV) Immunization (Adult) (1 - 1-dose 75+ series) 2026 Hepatitis B Immunization Aged Out No longer eligible based on patient's age to complete this topic Meningococcal Immunization (ACWY) Aged Out No longer eligible b ased on patient's age to complete this topic Rotavirus Immunization Aged Out No lo nger eligible based on patient's age to complete this topic
--- OUTSIDE RECORDS SUMMARY | 2025-03-28 08:43 | XMS_ITS | Referral Summary ---
Author Organization [facility] at the [facility] [place] Address [address] [place] [address] Care Team Providers Care Reversing Mill Roller Name Role Phone Hugh Cho MD Primary Care Prov ider Harman Lemus MD Unavailable [phone] Allergies No known active allergies Medications aspirin 325 mg enteric coated tablet 81 mg every other day 0 04/22/2019 Active calcium citrate 250 mg calcium tablet Take by mouth Active omega 5-txr-itk-fish oil 1,000 mg (120 mg-180 mg) capsule [...] 08/23/2019 Assessment & Plan (12/18/2020 12:45 PM MANAGEMENT ENGINEER): 10 yr risk sig. LDL < 70 Now...Continue statin Assessment & Plan (05/23/2020 8:24 AM CDT): Continue statins. Check fasting lipid panel and CMP Assessment & Plan (11/23/2019 10:55 AM MANAGEMENT ENGINEER): Continue Lipitor. Tolerating it well. Follow-up lipid [...] and get results from ER visit at [place] Assessment & Plan (11/28/2020 8:31 AM MANAGEMENT ENGINEER): Extremely low asymptomatic burden no need for further therapy Assessment & Plan (05/23/2020 8:24 AM CDT): Very rare symptoms. No structural heart disease. No indication for further treatment. Assessment & Plan (11/23/2019 10:56 AM MANAGEMENT ENGINEER): Asymptomatic. Assessment & Plan (08/23/2019 3:40 PM [...] 04/29/2019 Assessment & Plan (11/28/2020 8:31 AM MANAGEMENT ENGINEER): Excellent results after PVI about 18 months ago. No need for antiarrhythmics or anticoagulants Assessment & Plan (05/23/2020 8:24 AM CDT): Excellent results after PVI. No indication for antiarrhythmics or anticoagulation. Assessment & Plan (11/23/2019 10:56 AM MANAGEMENT ENGINEER): Excellent results from PVI. No anticoagulation antiarrhythmics [...] 04/28/2019 Assessment & Plan (11/28/2020 8:31 AM MANAGEMENT ENGINEER): Well controlled Assessment & Plan (11/23/2019 10:56 AM MANAGEMENT ENGINEER): Prior creatinine and potassium normal. CT chest without coarct. Increase Norvasc to 10 mg daily Assessment & Plan (08/23/2019 3:40 PM CDT): Well controlled on amlodipine. Assessment & Plan (07/21/2019 1:17 PM CDT): Amlodipine resume. Continue other meds. Deep venous thrombosis 04/28/2019 Social History Tobacco Use Types Packs/Day Years [...] on file Legal Sex Female 4:45 AM MANAGEMENT ENGINEER Gender Identity Female 11/23/2020 9:19 PM MANAGEMENT ENGINEER Sexual Orientation Straight 11/23/2020 9: 19 PM MANAGEMENT ENGINEER Last Filed Vital Signs Vital Sign Reading Time Taken Comments Blood Pressure 130/70 11/28/2020 8:16 AM MANAGEMENT ENGINEER Pulse 60 11/28/2020 8:16 AM MANAGEMENT ENGINEER Temperature 36.6 C (97.8 F) 11/28/2020 8:16 AM MANAGEMENT ENGINEER Respiratory Rate - - Oxygen Saturation 98% 11/23/2019 10:38 AM MANAGEMENT ENGINEER Inhaled Oxygen Concentration - - Weight 83 kg (183 lb) 11/28/2020 8:16 AM MANAGEMENT ENGINEER Height 167.6 cm (5' 6 ) 11/28/2020 8:16 AM MANAGEMENT ENGINEER Body Mass Index 29.54 11/28/2020 8:16 AM MANAGEMENT ENGINEER Plan of Treatment Not on file Insurance MEDICARE [facility] MEDICARE [facility] MEDICARE [facility] MEDICARE Advance Directives For more information, please contact: [phone] Documents on File Type Date Recorded Patient Poultry Culler Expl anation ADVANCE DIRECTIVE 07/11/2019 12:00 AM AMRIK VICKY WILL ADVANCE DIRECTIVE 07/11/2019 12:00 AM YENI Lieberman OF PHOTOGRAPHER APPRENTICE LITHOGRAPHIC FINANCIAL/MEDICAL Care Teams Reversing Mill Roller Relationship Specialty Start Date End Date Hugh Cho MD PCP - General Family Medicine 06/16/19 Harman Lemus MD Filter Press Pumper Cardiovascular Disease 07/13/19
== END 2025-03-28 08:38 | disposition home or self-care (01) ==
PROVIDERS: PCP Family Medicine; Visit Provider Family Medicine
DX: M79.662 Pain in left lower leg (principal)
CPT/HCPCS: 93971

== ENCOUNTER 2025-04-05 13:31 | Outpatient (CLI) | payer MEDICARE, OTHER, SELFPAY ==
--- NOTE | ~2025-04-05 | MR_ITS ---
MRI of the left shoulder Technique: Axial proton-density fat-sat images, coronal proton density fat-sat and T2 fat-sat images, and sagittal T1-weighted and T2 fat-sat images were acquired. Clinical History: Pain Findings: There is mild AC joint degenerative change, with small subacromial spur. Coracoclavicular, coracoacromial, and coracohumeral ligaments appear intact. Supraspinatus and infraspinatus tendons are intact, without partial or full-thickness tear. There is mild to moderate tendinosis. Subscapularis tendon is intact, with mild tendinosis. Tendon of long hea d of the biceps is intact. Possible small focal intrasubstance tear in the superior labrum near the biceps labral anchor. Remain marquise labrum appears intact. Inferior glenohumeral ligament is intact. No significant effusion or degenerative change of the gleno humeral joint. No fluid distention of the subcarinal/subdeltoid bursa. No muscle atrophy or edema. Impression: Questionable small focal intrasubstance tear in the superior labrum near the biceps labral anchor. Mild rotator cuff tendinosis without evidence of tear. Minimal AC joint degenerative change. Reviewed, dictated and finalized at [facility]. Impression: Questionable small focal intrasubstance tear in the superior labrum near the bi ceps labral anchor. Mild rotator cuff tendinosis without evidence of tear. Minimal AC joint degenerative change.
--- OUTSIDE RECORDS SUMMARY | 2025-04-05 13:35 | XMS_ITS | Clinical Summary ---
Author Organization [facility] at [facility] [place] Address [address] [place] [address] Care Team Providers Care Clerical Adviser Name Role Phone Hugh Cho MD Primary Care Prov ider Harman Lemus MD Unavailable [phone] Allergies No known active allergies Medications aspirin 325 mg enteric coated tablet 81 mg every other day 0 04/22/2019 Active calcium citrate 250 mg calcium tablet Take by mouth Active omega 1-yhw-cpb-fish oil 1,000 mg (120 mg-180 mg) capsule [...] 08/23/2019 Assessment & Plan (12/18/2020 12:45 PM DEMURRAGE WORKER): 10 yr risk sig. LDL < 70 Now...Continue statin Assessment & Plan (05/23/2020 8:24 AM CDT): Continue statins. Check fasting lipid panel and CMP Assessment & Plan (11/23/2019 10:55 AM DEMURRAGE WORKER): Continue Lipitor. Tolerating it well. Follow-up lipid [...] and get results from ER visit at [place] Assessment & Plan (11/28/2020 8:31 AM DEMURRAGE WORKER): Extremely low asymptomatic burden no need for further therapy Assessment & Plan (05/23/2020 8:24 AM CDT): Very rare symptoms. No structural heart disease. No indication for further treatment. Assessment & Plan (11/23/2019 10:56 AM DEMURRAGE WORKER): Asymptomatic. Assessment & Plan (08/23/2019 3:40 PM [...] 04/29/2019 Assessment & Plan (11/28/2020 8:31 AM DEMURRAGE WORKER): Excellent results after PVI about 18 months ago. No need for antiarrhythmics or anticoagulants Assessment & Plan (05/23/2020 8:24 AM CDT): Excellent results after PVI. No indication for antiarrhythmics or anticoagulation. Assessment & Plan (11/23/2019 10:56 AM DEMURRAGE WORKER): Excellent results from PVI. No anticoagulation antiarrhythmics [...] 04/28/2019 Assessment & Plan (11/28/2020 8:31 AM DEMURRAGE WORKER): Well controlled Assessment & Plan (11/23/2019 10:56 AM DEMURRAGE WORKER): Prior creatinine and potassium normal. CT chest [...] on file Legal Sex Female 4:45 AM DEMURRAGE WORKER Gender Identity Female 11/23/2020 9:19 PM DEMURRAGE WORKER Sexual Orientation Straight 11/23/2020 9: 19 PM DEMURRAGE WORKER Obstetrics History Last Filed Vital Signs Vital Sign Reading Time Taken Comments Blood Pressure 130/70 11/28/2020 8:16 AM DEMURRAGE WORKER Pulse 60 11/28/2020 8:16 AM DEMURRAGE WORKER Temperature 36.6 C (97.8 F) 11/28/2020 8:16 AM DEMURRAGE WORKER Respiratory Rate - - Oxygen Saturation 98% 11/23/2019 10:38 AM DEMURRAGE WORKER Inhaled Oxygen Concentration - - Weight 83 kg (183 lb) 11/28/2020 8:16 AM DEMURRAGE WORKER Height 167.6 cm (5' 6 ) 11/28/2020 8:16 AM DEMURRAGE WORKER Body Mass Index 29.54 11/28/2020 8:16 AM DEMURRAGE WORKER Plan of Treatment Not on file Insurance MEDICARE [facility] MEDICARE [facility] MEDICARE [facility] MEDICARE Advance Directives For more information, please contact: [phone] Documents on File Type Date Recorded Patient Diesel Dragline Operator Expl anation ADVANCE DIRECTIVE 07/11/2019 12:00 AM AMRIK PERRY WILL ADVANCE DIRECTIVE 07/11/2019 12:00 AM YENI Lieberman OF CLINICAL UNIT EDUCATOR FINANCIAL/MEDICAL Care Teams Clerical Adviser Relationship Specialty Start Date End Date Hugh Cho MD PCP - General Family Medicine 06/16/19 Harman Lemus MD Nurse Transitional Cardiovascular Disease 07/13/19
--- OUTSIDE RECORDS SUMMARY | 2025-04-05 13:35 | XMS_ITS | Data Portability ---
Author Organization [place] - [facility] OFFICE Address [facility] [place] [address] Care Team Providers Care Insecticide Sprayer Name Role Phone STEVEN ORO Primary Care Provider Assessment Encounter Date Assessment Date Assessment LastModified by Organization Details LastModified Time 02/09/2024 02/09/2024 Patient Examined by EDA Miranda, Also Documentation reviewed and approved by supervising physician dayana Not available 02/09/2024 11:15:19 Plan of Treatment Reminders Order Date Submit Date Provider Last Modified By Organization Details Last Modified Time Details Appointments ESTABLISH ED PATIENT DETAILED 2025 09:30A M Jose Francisco Malhotra i, MD Not available Not available Not available Lab None recorded. Referral None recorded. Procedures None recorded. Surgeries None recorded. Imaging None recorded. Medication Orders carvedilo l 6.25 mg tablet 2023 JOS[facility]AT [facility], [address] [place] [address], [address], 02/09/2024 11:22:39 amlodipin e 10 mg tablet 2023 [facility]AT [facility], [address] [place] [address], [address], 02/09/2024 11:22:39 losartan 100 mg tablet 2023 024 JOSAFAT [facility], [address] [place] [address], [address], 02/09/2024 11:22:37 atorvasta tin 10 mg tablet 2023 [facility], [address] [place] [address], [address], 02/09/2024 11:22:37 carvedilo l 6.25 mg tablet [address] [facility], [place], [address], 02/10/2023 12:21:37 hydrochlo rothiazid e 25 mg tablet [address] [facility] [place], [address], 02/10/2023 12:21:36 losartan 100 mg tablet [address] [facility], [place], [address], 02/10/2023 12:21:34 atorvasta tin 10 mg tablet [address] [facility], [place], [address], 02/10/2023 12:21:35 hydrochlo rothiazid e 25 mg tablet [address] [facility], [place], [address], 02/11/2022 12:01:19 amlodipin e 10 mg tablet [address] [facility] [place], [address], 02/11/2022 12:01:17 losartan 50 mg tablet [address] [facility] [place], [address], 02/12/2022 17:08:05 Coreg 6.25 mg tablet [address] [facility] [place], [address], 02/11/2022 12:01:17 atorvasta tin 10 mg tablet [address] [facility] [place], [address], 02/11/2022 12:01:21 Coreg 6.25 mg tablet 2020 021 [email or web address] [facility] [place], [address], 04/02/2021 11:52:51 Patient TargetsNo targets recorded. Patient Instructions Encounter Date Encounter Id Patient Instructions Last Modified By Organization Details Last Modified Time 04/02/2021 [id number] Exercise advised Low cholesterol diet advised Low sodium diet advised [email or web address] Not available 04/02/2021 10:54:12 Scribed by Ursula Dinh [facility] [email or web address] Not available 04/02/2021 10:54:50 02/11/2022 [id number] Weight loss 20 pounds Exercise advised Low cholesterol diet advised Low sodium diet advised. [email or web address] Not available 02/11/2022 12:01:11 02/10/2023 [id number] Exercise advised Low cholesterol diet advised Low sodium diet advised. [email or web address] Not available 02/10/2023 12:21:29 02/09/2024 [id number] Low cholesterol diet advised Low sodium diet advised. [email or web address] Not available 02/09/2024 11:20:28 Reason for Referral None Reported. Results Created Date Observation Date Name Description Value Unit Range Abnormal Flag Note LastModifiedBy Organization Detail LastModifiedTime 04/03/20 21 04/02/2021 angelique santana diogr am No observ ation record ed. [email or web address] Not Available 04/03 13:58:46 08/03/20 21 07/23/2021 , echo pinkyo gram No observ ation record ed. [facility] [address], [place], [address], 08/04/2021 08:37:37 02/13/20 22 02/11/2022 elect rocar diogr am No observ ation record ed. [email or web address] Not Available 2021 12:43:50 02/13/20 23 02/10/2023 elect rocar diogr am No observ ation record ed. [email or web address] Not Available 2022 17:39:37 03/08/20 23 03/04/2023 , [facility] ardio gram No observ ation record ed. [facility] [address], [place], [address], 03/08/2023 18:45:18 02/11/20 24 02/09/2024 elect rocar diogr am No observ ation record ed. [email or web address] Not Available 2023 09:15:37 02/09/20 25 02/08/2025 elect rocar diogr am No observ ation record ed. [email or web address] Not Available 2024 14:08:09 Result Notes Documentation Provider Name and Address Organization Details Recorded Time Lipid Panel, Blood : 04/03/21:WBC 6.5,RBC 4.68,HGB 14.1,HCT 41.5,PLT 272. 04/02/21:Na 141,K 4.4,Cl 99,Co2 29,Glu 98,Bun 16,Cr 0.88,AST 12,ALT 16,CPK 110. 03/23/21:TC 166,TG 211,HDL 50,LDL 81. Manisha ghosh [facility] 04/12/2021 17:51:11 Lipid Panel, Blood : 02/12/22:Na 141,K 4.4,Cl 100,Co2 27,Glu 104,Bun 14,Cr 0.85,ALT 25,AST 16.CK 94. 02/12/22:TC 159,TG 135,HDL 52,LDL 83. Manisha ghosh [facility] 02/19/2022 16:38:21 Lipid Panel, Blood : 02/11/23:Na 144,K 4.2,Cl 104,CO2 ,GLU 98,BUN 13,Cr 0.84,AST 10,ALT 13. 02/11/23:TC 147,TG 161,LDL 48,HDL 72. Manisha Goldmancarina [place], [place] - [facility] 02/12/2023 08:59:15 Lipid Panel, Blood : 02/11/23:Na 144,K 4.2,Cl 104,CO2 27,GLU 98,BUN 13,Cr 0.84,AST 10,ALT 13. 02/11/23:TC 147,TG 161,LDL 48,HDL 72. Dyer Jonescarina ghosh, [place] - [facility] 02/12/2023 16:23:03 Lipid Panel, Blood : 02/11/24:Na 141,K 4.2,CL 100,CO2 27,GLU 93,BUN 14,Cr 0.86,AST 12,ALT 19,HbA1c 5.8,CK 71. 02/11/24:TC 156,TG 175,HDL 56,LDL 71. Manisha Jonescarina ghosh [place] - [facility] 02/14/2024 17:07:42 Problems Name Problem SNOMED Code Status Onset Date Resolution Date Notes Provider Name and Address Organization Details Recorded Time Hyperlipide gia 07317614 Active 2020 Manisha Jonescarina [place], [place] - [facility] 2 15:56:49 Palpitation s 64406152 Active 2018 Angela ghosh, [place] - [facility] 9 14:00:50 Essential hypertensio n 12188312 Active 2018 Manisha ghosh, [place] - [facility] 2 15:56:45 Sleep apnea 08505039 Active 2018 Manisha ghosh, [place] - [facility] 2 15:56:56 Deep venous thrombosis 384986915 Active 2018 Manisha ghosh, [place] - [facility] 2 15:56:43 Atrial fibrillatio n 21857889 Completed 201804/29/2019 Jose Francisco Malhotra i, MD [address] [place], [address] [facility] [place] - [facility] 9 11:19:44 Paroxysmal atrial fibrillatio n 456220171 Active 2018 [facility] 15:56:52 Dyspnea 838068037 Active 2018 Jose Francisco Malhotra i, MD [address] [place], [address], [facility] 9 11:20:26 Insomnia 496428974 Active 2018 Manisha ghosh [facility] 9 14:07:25 Problem Notes None recorded. Procedures Surgical History Date Name Laterality Status Provider Name and Address Organization Details Recorded Time section completed Yoli Fajardo [facility] 05/18/2019 16:05:48 Imaging Results Imaging Date Name Status LastModified by Organization Details LastModified Time 04/02/2021 electrocardiogram completed Informa tion not available 04/03/2021 13:58:46 07/23/2021 , echocardiogram completed [facility] [address], [place], [address], 08/04/2021 08:37:37 02/11/2022 electrocardiogram completed Informa tion not available 02/12/2022 12:43:50 02/10/2023 electrocardiogram completed Informa tion not available 02/12/2023 17:39:37 03/04/2023 , echocardiogram completed [facility] [address], [place], [address], 03/08/2023 18:45:18 02/09/2024 electrocardiogram completed Informa tion not available 02/11/2024 09:15:37 02/08/2025 electrocardiogram completed Informa tion not available 02/08/2025 14:08:09 Procedure Notes None recorded. Medical Equipment None Reported. Allergies No known drug allergies Medications Name Sig Start Date Stop Date Status Note LastModified by Organization Details LastModified Time losartan 50 mg tablet Take 1 tablet every day by oral route. 02/12 completed Not Available Not Available Not Available cyclobenz aprine 10 mg tablet 04/02 completed pt. no longer takes 11/04/19 FH Not Available Not Available Not Available promethaz ine-DM 6.25 mg-15 mg/5 mL oral syrup TAKE 5 ML BY MOUTH EVERY 4 TO 6 HOURS NEEDED FOR COUGH active Not Available Not Available No t Available carvedilo l 6.25 mg tablet TAKE 1 TABLET TWICE A DAY active Not Available Not Available No t Available prednison e 10 mg tablet 02/10 completed Not Available Not Available Not Available doxycycli ne hyclate 100 mg capsule 04/02 completed pt. no longer takes 11/04/19 FH Not Available Not Available Not Available atorvasta tin 10 mg tablet 1 tab by mouth daily at bedtime active Not Available Not Available No t Available aspirin 325 mg tablet Take 1 tablet every day by oral route. 08/02 completed Hold for surgery Not Available Not Available Not Available ofloxacin 0.3 % eye drops 02/10 completed Not Available Not Available Not Available benzonata te 200 mg capsule TAKE 1 CAPSULE BY MOUTH THREE TIMES DAILY NEEDED FOR COUGH 02/08 completed Not Available Not Available Not Available metoprolo l succinate ER 50 mg tablet,ex tended release 24 hr 04/29 completed Not Available Not Available Not Available hydrocodo ne 5 mg-acetam inophen 325 mg tablet 04/02 completed Not Available Not Available Not Available metronida zole 0.75 % (37.5 mg/5 gram) vaginal gel INSERT VAGINALL Y AT BEDTIME FOR 5 NIGHTS 02/10 completed Not Available Not Available Not Available fluoroura cil 5 % topical cream APPLY TOPICALL Y TO THE AFFECTED AREA TWICE DAILY FOR 4 WEEKS active Not Available Not Available No t Available metoprolo l succinate ER 100 mg tablet,ex tended release 24 hr 07/12 completed Not Available Not Available Not Available ciproflox acin 250 mg tablet TAKE 1 TABLET BY MOUTH TWICE DAILY active Not Available Not Available No t Available amlodipin e 5 mg tablet TAKE 1 TABLET DAILY active Not Available Not Available No t Available ciproflox acin 500 mg tablet TAKE 1 TABLET BY MOUTH EVERY 12 HOURS FOR 7 DAYS 02/08 completed Not Available Not Available Not Available amoxicill in 500 mg tablet TAKE 1 TABLET THREE TIMES DAILY UNTIL GONE 02/10 completed Not Available Not Available Not Available ketorolac 0.5 % eye drops 02/10 completed Not Available Not Available Not Available amoxicill in 875 mg tablet TAKE 1 TABLET BY MOUTH EVERY 12 HOURS FOR 7 DAYS 02/08 completed Not Available Not Available Not Available methocarb stefany 750 mg tablet TAKE 1 TABLET BY MOUTH THREE TIMES DAILY active Not Available Not Available No t Available triamcino lone acetonide 0.025 % topical cream APPLY TOPICALL Y TO THE AFFECTED AREA TWICE DAILY FOR 14 DAYS active Not Available Not Available No t Available amlodipin e 10 mg tablet 1 tab by mouth daily active Not Available Not Available No t Available hyoscyami ne sulfate 0.125 mg tablet TAKE 1 TABLET BY MOUTH EVERY 6 HOURS NEEDED FOR CRAMPING active Not Available Not Available No t Available diclofena c sodium 75 mg tablet,de layed release TAKE 1 TABLET BY MOUTH TWICE DAILY 02/10 completed pt is no longer taking 02/11/22 SA Not Available Not Available Not Available hydrochlo rothiazid e 25 mg tablet one tab once daIly active Not Available Not Available No t Available zolpidem 5 mg tablet Take 1 tablet every day by oral route. 04/02 completed pt. no longer takes 11/04/19 FH Not Available Not Available Not Available levofloxa trish 500 mg tablet TAKE 1 TABLET BY MOUTH DAILY 02/10 completed Not Available Not Available Not Available methylpre dnisolone 4 mg tablets in a dose pack FOLLOW PACKAGE DIRECTIO NS 02/10 completed Not Available Not Available Not Available losartan 100 mg tablet 1 Tablet by mouth daily active Not Available Not Available No t Available amoxicill in 875 mg-potass ium clavulana te 125 mg tablet TAKE 1 TABLET BY MOUTH EVERY 12 HOURS FOR 7 DAYS active Not Available Not Available No t Available nitrofura ntoin monohydra te/macroc rystals 100 mg capsule TAKE 1 CAPSULE BY MOUTH TWICE DAILY active Not Available Not Available No t Available chlorhexi dine gluconate 0.12 % mouthwash RINSE BY MOUTH WITH 15ML FOR 2 MINUTES EVERY 12 HOURS. active Not Available Not Available No t Available Bystolic 5 mg tablet TAKE 1 TABLET ONCE DAILY 02/10 completed Not Available Not Available Not Available Eliquis 5 mg tablet Take 1 tablet twice a day by oral route. 11/04 completed pt. no longer takes 11/04/19 FH Not Available Not Available Not Available Multi Vitamin 1 tab po QD 02/06 completed Not Available Not Available Not Available mag citrate-p otassium citrate 1 tab po QD 02/06 completed Not Available Not Available Not Available Vitals Date Recorded Body weight Heart rate Oxygen saturation Oxygen saturation in Arterial blood by Pulse oximetry Body temperature Systolic blood pressure Diastolic blood pressure Provider Name and Address Organization Details Last Updated DateTime 1 96450 g 58 /min 97 % 97 % 97.2 [degF] 123 mm[Hg] 71 mm[Hg] Augusta Roper [facility] 1 10:32:22 Date Recorded Body weight Oxygen saturation Oxygen saturation in Arterial blood by Pulse oximetry Heart rate Systolic blood pressure Diastolic blood pressure Provider Name and Address Organization Details Last Updated DateTime 2 84937.5 9 g 94 % 94 % 79 /min 114 mm[Hg] 78 mm[Hg] RENZO COBBONY [facility] 2 11:40:28 Date Recorded Body height Body mass index (BMI) Body weight Heart rate Respiratory rate Oxygen saturation Oxygen saturation in Arterial blood by Pulse oximetry Systolic blood pressure Diastolic blood pressure Provider Name and Address Organization Details Last Updated DateTime 3 170.18 cm 28.3 kg/m2 19450.2 2 g 71 /min 16 /min 95 % 95 % 122 mm[Hg] 82 mm[Hg] Chacho Carrera [facility] 3 12:00:29 Date Recorded Body height Body mass index (BMI) Body weight Heart rate Oxygen saturation Oxygen saturation in Arterial blood by Pulse oximetry Systolic blood pressure Diastolic blood pressure Provider Name and Address Organization Details Last Updated DateTime 4 170.18 cm 29.1 kg/m2 72844.1 8 g 66 /min 92 % 92 % 118 mm[Hg] 88 mm[Hg] Augusta Roper [facility] 4 10:59:22 Date Recorded Body height Body mass index (BMI) Body weight Heart rate Oxygen saturation Oxygen saturation in Arterial blood by Pulse oximetry Systolic blood pressure Diastolic blood pressure Provider Name and Address Organization Details Last Updated DateTime 03/26/202 5 170.18 cm 29.4 kg/m2 99248.3 7 g 59 /min 93 % 93 % 126 mm[Hg] 82 mm[Hg] Rayne Muscogee [facility] 5 09:18:18 Social History Question Answer Notes LastModified by Organizat ion Details LastModified Time Tobacco Smoking Status Never Smoker Not Available [facility] 09/18/2020 03:30:42 Do You Have An Advance Directive? No [id number] Information not available 09/18/2020 What Is Your Level Of Caffeine Consumption? Moderate [id number] Information not available 09/18/2020 How Much Tobacco Do You Chew? None [id number] Information not available 09/18/2020 What Type Of Diet Are You Following? REGULAR [id number] Information not available 09/18/2020 Which Illicit Or Recreational Drugs Have You Used? No [id number] Information not available 09/18/2020 Live Alone Or With Others? With Others [facility] Information not available 05/18/2019 Marital Status [place] [address] Informatio n not available 05/18/2019 What Was The Date Of Your Most Recent Tobacco Screening? 11/04/2019 Information not available 03/31/2021 How Many Children Do You Have? 2 [id number] Information not available 09/18/2020 How Much Tobacco Do You Smoke? No Information not available 03/31/2021 How Many Years Have You Smoked Tobacco? 0 Information not available 03/31/2021 Sex: Unknown Functional Status Question Answer Note LastModified by Organizat ion Details LastModified Time What is your level of alcohol consumption? None [id number] Information not available 09/18/2020 Do you or have you ever used smokeless tobacco? Never used smokeless tobacco Information not available 03/31/2021 Do you or have you ever used e-cigarettes or vape? Never used electronic cigarettes Information not available 03/31/2021 What is your exercise level? Moderate [id number] Information not available 09/18/2020 Mental Status None recorded. Family History Nothing Reported. Medical History Condition Response Hypertension Y Gynecological HistoryNo gynecological history recorded. Obstetrics History GPAL:G 0 P 0 0 0 0 Past Encounters Encounter ID Performer Location Encounter Start Date Encounter Closed Date Diagnosis/Indication Diagnosis SNOMED-CT Code Diagnosis ICD10 Code Diagnosis Note [id number] Jose Francisco Barfield MD [place] OFFICE [address] [place] [address] 04/29/2019 10:19:33 04/29/2019 11:30:43 Paroxysmal atrial fibrillation 569707460 I48.0 SB today at 50 bpm.Has a CHADS score of 1. Continue full-dose ASA and Bystolic. Had marked bradycardi a on metoprolol . 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 Dyspnea 888214867 R06.00 Could be angina equivalent . Had ECHO 04/26/19: Normal LV wall thickness. Normal global LV systolic function. LVEF 60%. Normal appearance of the mitral valve. Mitral valve leaflets appear mildly thickened. Mild mitral valve prolapse involving the posterior mitral valve. Trivial regurgitat ion of the mitral valve. Treadmill Myoview Stress test, has high [place] Risk score. Has Known CAD, or CAD risk equivalent . To look for any ischemia. Palpitations 43000707 R0 0.2 More so at HS. Has underling ELEAZAR but is intolerant with CPAP. Has an oral device. Sleep apnea 13997075 G47 .30 Intolerant with CPAP. Has an oral device. Deep venou s thrombosis 929870448 I82.409 Questionab le provoked RLE DVT at the age of 12. No recurrence s. Essential hypertension 20754314 I10 Well controlled today. Continue current regimen. [id number] MD Wiley Marquez Office [address] [place] [address] 05/18/2019 15:04:15 05/18/2019 16:31:13 Paroxysmal atrial fibrillation 850714362 I48.0 SB today at 50 bpm.Has a CHADS score of 1. Continue full-dose ASA and Bystolic. Had marked bradycardi a on metoprolol . 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 No recurrence s. Dyspnea 590683696 R06.00 Could be angina equivalent . Had ECHO 04/26/19: Normal LV wall thickness. Normal global LV systolic function. LVEF 60%. Normal appearance of the mitral valve. Mitral valve leaflets appear mildly thickened. Mild mitral valve prolapse involving the posterior mitral valve. Trivial regurgitat ion of the mitral valve. Treadmill Myoview Stress test, has high [place] Risk score. Has Known CAD, or CAD risk equivalent . To look for any ischemia. Palpitations 05870573 R0 0.2 More so at HS. Has underling ELEAZAR but is intolerant with CPAP. Has an oral device. Essential hypertension 92385002 I10 Well controlled today. Continue current regimen. Sleep apnea 74696114 G47 .30 Intolerant with CPAP. Has an oral device. [id number] Jose Francisco Barfield MD [place] OFFICE [facility] [place] [address] 05/31/2019 10:24:33 06/11/2019 19:03:02 Paroxysmal atrial fibrillation 513360885 I48.0 Rate is well controlled . Has a CHADS score of 1. Continue full-dose ASA and Bystolic. Had marked bradycardi a on metoprolol . 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 Lemus Deep venou s thrombosis 760113447 I82.409 Questionab le provoked RLE DVT at the age of 12. No recurrence s. Dyspnea 568923032 R06.00 Improved. Stress test negative. Had ECHO 04/26/19: Normal LV wall thickness. Normal global LV systolic function. LVEF 60%. Normal appearance of the mitral valve. Mitral valve leaflets appear mildly thickened. Mild mitral valve prolapse involving the posterior mitral valve. Trivial regurgitat ion of the mitral valve. Palpitations 59920625 R0 0.2 More so at HS. Has underling ELEAZAR but is intolerant with CPAP. Has an oral device. Essential hypertension 75025762 I10 Well controlled today. Continue current regimen. Sleep apnea 88737279 G47 .30 Intolerant with CPAP. Has an oral device. Atrial fibrillation 4943 6004 I48.91 [id number] Jose Francisco Barfield MD [place] OFF[facility] [place] [address] 07/12/2019 15:08:42 11/02/2019 11:13:34 Paroxysmal atrial fibrillation 734552431 I48.0 Rate is well controlled . Has a CHADS score of 1. Continue full-dose ASA and Bystolic. Had marked bradycardi a on metoprolol . 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 Allan abarca s thrombosis 727036607 I82.409 Questionab le provoked RLE DVT at the age of 12. No recurrence s. Dyspnea 454524117 R06.00 Improved. Stress test negative. Had ECHO 04/26/19: Normal LV wall thickness. Normal global LV systolic function. LVEF 60%. Normal appearance of the mitral valve. Mitral valve leaflets appear mildly thickened. Mild mitral valve prolapse involving the posterior mitral valve. Trivial regurgitat ion of the mitral valve. Palpitations 18695756 R0 0.2 More so at HS. Has underling ELEAZAR but is intolerant with CPAP. Has an oral device. Essential hypertension 43077379 I10 Well controlled today. Continue current regimen. Sleep apnea 04938555 G47 .30 Intolerant with CPAP. Has an oral device. Atrial fibrillation 4943 6004 I48.91 [id number] Jose Francisco Barfield MD [place] [facility] [address] [place] [address] 08/02/2019 14:07:18 10/31/2019 17:06:06 Paroxysmal atrial fibrillation 912388638 I48.[address] Allan abarca s thrombosis 718507693 I82.409 Questionab le provoked RLE DVT at the age of 12. No recurrence s. Dyspnea 788641004 R06.00 Improved. Stress test negative. Had ECHO 04/26/19: Normal LV wall thickness. Normal global LV systolic function. LVEF 60%. Normal appearance of the mitral valve. Mitral valve leaflets appear mildly thickened. Mild mitral valve prolapse involving the posterior mitral valve. Trivial regurgitat ion of the mitral valve. Palpitations 92418880 R0 0.2 More so at HS. Has underling ELEAZAR but is intolerant with CPAP. Has an oral device. Essential hypertension 63006152 I10 Well controlled today. Continue current regimen. Sleep apnea 36887733 G47 .30 Intolerant with CPAP. Has an oral device. Atrial fibrillation 4943 6004 I48.91 s/p Ablation Insomnia 395248487 G47.0 0 [id number] Jose Francisco Barfield MD [place] [facility] [address] [place] [address] 11/04/2019 10:16:07 11/04/2019 12:14:16 Paroxysmal atrial fibrillation 558382335 I48.[address] Lemus Deep venou s thrombosis 794199047 I82.409 Questionab le provoked RLE DVT at the age of 12. No recurrence s. Dyspnea 733961127 R06.00 Improved. Stress test negative. Had ECHO 04/26/19: Normal LV wall thickness. Normal global LV systolic function. LVEF 60%. Normal appearance of the mitral valve. Mitral valve leaflets appear mildly thickened. Mild mitral valve prolapse involving the posterior mitral valve. Trivial regurgitat ion of the mitral valve. Palpitations 97621479 R0 0.2 More so at HS. Has underling ELEAZAR but is intolerant with CPAP. Has an oral device. Essential hypertension 32150466 I10 Well controlled today. Continue current regimen. Sleep apnea 95620477 G47 .30 Intolerant with CPAP. Has an oral device. Insomnia 065328508 G47.0 0 Hyperlipidemia 55194007 E78.5 10/07/19 LDL 67 HDL 49 TR 175 TC 141continu e atorvastat in 10 mg [id number] Jose Francisco Barfield MD [place] [facility] [facility] [place] [address] 04/02/2021 10:11:37 04/02/2021 11:55:09 Paroxysmal atrial fibrillation 149119468 I48.0 s/p ablation in SB 04/02/2021 with HR 58 bpm [id number] Sc score = 2 Remains asymptomat ic Essential hypertension 66587942 I10 Well controlled on current regimen Palpitations 91157684 R0 0.2 Resolved Deep venou s thrombosis 566006565 I82.409 Questionab le provoked RLE DVT at the age of 12 without recurrence Dyspnea [id number] R06.00 Resolved Echo 04/26/2019 : Normal LV wall thickness. Normal global LV systolic function. LVEF 60%. Normal appearance of the mitral valve. Mitral valve leaflets appear mildly thickened. Mild mitral valve prolapse involving the posterior mitral valve. Trivial regurgitat ion of the mitral valve. Hyperlipidemia 02379663 E78.5 Needs to keep LDL less than 100, and HDL more than 40. 10/07/2019 LDL 121 Continue atorvastat in 10 mg Will get fasting lipids for follow-up Sleep apnea 66819344 G47 .30 Continues to use oral device [id number] Jose Francisco Barfield MD [place] [facility] [address] [place] [address] 02/11/2022 10:49:09 02/11/2022 12:07:10 Paroxysmal atrial fibrillation [id number] I48.0 s/p ablation in [place] 04/02/2021 with HR 58 bpm [id number] Sc score = 2 Remains asymptomat ic Essential hypertension 59547342 I10 Well controlled on current regimen Palpitations 18142760 R0 0.2 Resolved Deep venou s thrombosis 306220659 I82.409 Questionab le provoked RLE DVT at the age of 12 without recurrence Dyspnea 551623731 R06.00 Resolved Echo 04/26/2019 : Normal LV wall thickness. Normal global LV systolic function. LVEF 60%. Normal appearance of the mitral valve. Mitral valve leaflets appear mildly thickened. Mild mitral valve prolapse involving the posterior mitral valve. Trivial regurgitat ion of the mitral valve. Hyperlipidemia 28672659 E78.5 Needs to keep LDL less than 100, and HDL more than 40. 10/07/2019 LDL 121 Continue atorvastat in 10 mg Will get fasting lipids for follow-up Sleep apnea 72876666 G47 .30 Continues to use oral device [id number] Jose Francisco Barfield MD [place] [facility] [address] [place] [address] 02/10/2023 11:11:18 02/10/2023 12:32:56 Paroxysmal atrial fibrillation [id number] I48.0 s/p ablation in [place] 04/02/2021 with HR 58 bpm [id number] Sc score = 2 Remains asymptomat ic Essential hypertension 35153429 I10 Well controlled on current regimen Palpitations 11495612 R0 0.2 Resolved Deep venou s thrombosis 041885425 I82.409 Questionab le provoked RLE DVT at the age of 12 without recurrence Dyspnea 327271364 R06.00 Resolved Echo 04/26/2019 : Normal LV wall thickness. Normal global LV systolic function. LVEF 60%. Normal appearance of the mitral valve. Mitral valve leaflets appear mildly thickened. Mild mitral valve prolapse involving the posterior mitral valve. Trivial regurgitat ion of the mitral valve. Hyperlipidemia 62378245 E78.5 Needs to keep LDL less than 100, and HDL more than 40. 10/07/2019 LDL 121 Continue atorvastat in 10 mg Will get fasting lipids for follow-up Sleep apnea 50657837 G47 .30 Continues to use oral device [id number] Jose Francisco Barfield MD [place] [facility] [address] [place] [address] 02/09/2024 10:39:05 02/09/2024 11:25:44 Paroxysmal atrial fibrillation 781392167 I48.0 s/p ablation in [place] 01/2024 with HR 66 bpm [id number] Sc score = 2 Remains asymptomat ic Essential hypertension 56801900 I10 Well controlled on current regimen Palpitations 39857753 R0 0.2 Resolved Deep venou s thrombosis 183521331 I82.409 Questionab le provoked RLE DVT at the age of 12 without recurrence Hyperlipidemia 99987374 E78.5 Needs to keep LDL less than 100, and HDL more than 40.*Last LDL was 48 done on 02/10/23.P t takes atorvastat in 10 mg. Sleep apnea 41865555 G47 .30 Continues to use oral device [id number] Jose Francisco Barfield MD [place] [facility] [place] [address] 02/08/2025 09:05:22 02/08/2025 09:41:06 Paroxysmal atrial fibrillation 528313173 I48.0 s/p ablation in [place] 01/2024 with HR 66 bpm [id number] Sc score = 2 Remains asymptomat ic Essential hypertension 41733310 I10 Well controlled on current regimen Palpitations 84203214 R0 0.2 Resolved Deep venou s thrombosis 059222451 I82.409 Questionab le provoked RLE DVT at the age of 12 without recurrence Hyperlipidemia 74187798 E78.5 Needs to keep LDL less than 100, and HDL more than 40.*Last LDL was 48 done on 02/10/23.P t takes atorvastat in 10 mg. Sleep apnea 07591519 G47 .30 Continues to use oral device Health Concerns Section Related Observation LastModified by Organization Detai ls LastModified Time None Recorded Concern Status LastModified by Organization Details LastModified Time None Recorded Advance Directives Directive N: Payers Insurance Date Sequence Insurance Name Policy Number Policy Rodriguez Covered Member ID Rodriguez Member ID Guarantor Name 02/08/2025 2 [employer] (MEDICARE SUPPLEMENT) Twila Cabrera [id number] Twila Cabrera 02/08/2025 1 [place] [id number] Twila Cabrera [id number] Twila Cabrera 02/08/2025 1 [place] Twila Cabrera [id number] Twila Cabrera Notes Date Note Type Note Provider Name and Address Organization Details Recorded Time 04/02/2021 text/html 04/02/1021 CC: Palpitations, shortness of breath Patient is a 70-year-old white female with a PMH of PAF, hypertension, RLE DVT, MVP, endometriosis presents today for follow-up. She was last seen in clinic 1.5 years ago on 11/04/2019. During that time, she followed with Dr. Lemus following her AFib ablation. She reports feeling well with no complaints. She remains in NSR. No new complaints, feeling well overall. Has been active but not exercising. Denies chest pain. Denies shortness of breath at rest. Denies dyspnea on exertion. No orthopnea. No PND. Denies heart palpitations. Denies dizziness. Denies syncope or near syncope. No ankle or leg edema. No major bleeding events. No reported side effects from medications. Taking medications as prescribed with no missed doses. Denies snoring, daytime somnolence and AM headache. Had negative stress test done in 05/26/19 with normal LV systolic function , EF 57% She was in ER 05/17/2019; with Palpitation, and bp 223/97. No known hx of CAD, prior AK, valvular heart disease, TIA, CVA. Has a hx of a RLE DVT in the past. Reports a family hx of heart disease. Mother had A-fib, CAD and CHF. 04/22/19: [facility] on with complaints of palpitations. She has a hx of HTN and was started on metoprolol then had significant bradycardia. Previously, she was found to have short runs of A-fib with RVR then spontaneously converted to NSR. Her metoprolol was changed to Bystolic and was placed on full-dose ASA. Had ECHO 04/26/19: Normal LV wall thickness. Normal global LV systolic function. LVEF 60%. Normal appearance of the mitral valve. Mitral valve leaflets appear mildly thickened. Mild mitral valve prolapse involving the posterior mitral valve. Trivial regurgitation of the mitral valve. Results from this visit, or from the past: BMP 05/17/2019 NA 140 K 3.5 CH 100 CO2 29 GL 112 BUN 19 CR 0.90 CA 9.9 CBC 05/17/2019 WBC 10.9 RBC 4.78 HGB 14.4 HCT 42.6 PLT 282 Labs: Hgb 14.6, Hct 43.3Na 141, K 3.3, BUN 22, Cr 1.0, Glu 114, treadmill nuclear stress test (PROC) tdm-Negative stress test. Normal LV systolic function. LVEF 57%. 11/04/19 EKG: Non specific Flat T waves inferoir leads electrocardiogram 06-02-2019 EKG 04/29/19 AM Sinus bradycardia. Otherwise within normal limits EKG 04/29/19 AM Sinus bradycardia. Otherwise within normal limits 04/26/19 ECHO: Normal LV wall thickness. Normal global LV systolic function. LVEF 60%. Normal appearance of the mitral valve. Mitral valve leaflets appear mildly thickened. Mild mitral valve prolapse involving the posterior mitral valve. Trivial regurgitation of the mitral valve. Ursula Dinh HOT ROLL LAMINATOR-BC [facility] 04/02/2021 11:55:06 02/11/2022 text/html 02/11/22CC : [facility] follow upPatient is a 71-year-old white female with a PMH of PAF, hypertension, RLE DVT, MVP, endometriosis presents today for follow-up with ECHO results. She was last seen in the clinic on 04/02/21, since then she is doing well, with exerciseShe denies ER visits and hospitalizations since she was last seen. Denies chest pain.Denies shortness of breath at rest. Has mild dyspnea on exertion.No orthopnea. No PNDs.Denies heart palpitations.Denies dizziness. Denies syncope or near syncope.No ankle or leg edema.No major bleeding events.No reported side effects from medications. Taking medications as prescribed with no missed doses.Denies snoring, daytime somnolence and AM headache.*Last LDL was 81 done on 04/02/21.Pt takes atorvastatin 10 mg. *Had ECHO done on 07/23/21 showed LV chamber size is normal,LV wall thickness is normal,there is normal global systolic function and contractility,the estimated LVEF is 60-65%,there is mild thickening of the mitral valve anterior leaflet,there is trace mitral regurgitation,there is trace tricuspid regurgitation. 04/03/21:WBC 6.5,RBC 4.68,HGB 14.1,HCT 41.5,PLT 272.04/02/21:Na 141,K 4.4,Cl 99,Co2 29,Glu 98,Bun 16,Cr 0.88,AST 12,ALT 16,CPK 110.03/23/21:TC 166,TG 211,HDL 50,LDL 81. Previously :She followed with Dr. Lemus following her AFib ablation. She reports feeling well with no complaints. She remains in NSR. Had negative stress test done in 05/26/19 with normal LV systolic function , EF 57% She was in ER 05/17/2019; with Palpitation, and bp 223/97. Reports a family hx of heart disease. Mother had A-fib, CAD and CHF. 04/22/19: [facility] on with complaints of palpitations. She has a hx of HTN and was started on metoprolol then had significant bradycardia. Previously, she was found to have short runs of A-fib with RVR then spontaneously converted to NSR. Her metoprolol was changed to Bystolic and was placed on full-dose ASA. Results from this visit, or from the past: BMP 05/17/2019 NA 140 K 3.5 CH 100 CO2 29 GL 112 BUN 19 CR 0.90 CA 9.9 CBC 05/17/2019 WBC 10.9 RBC 4.78 HGB 14.4 HCT 42.6 PLT 282 Labs: Hgb 14.6, Hct 43.3Na 141, K 3.3, BUN 22, Cr 1.0, Glu 114, treadmill nuclear stress test (PROC) tdm-Negative stress test. Normal LV systolic function. LVEF 57%. 11/04/19 EKG: Non specific Flat T waves inferoir leads electrocardiogram 06-02-2019 EKG 04/29/19 AM Sinus bradycardia. Otherwise within normal limits EKG 04/29/19 AM Sinus bradycardia. Otherwise within normal limits 04/26/19 ECHO: Normal LV wall thickness. Normal global LV systolic function. LVEF 60%. Normal appearance of the mitral valve. Mitral valve leaflets appear mildly thickened. Mild mitral valve prolapse involving the posterior mitral valve. Trivial regurgitation of the mitral valve. Jose Francisco Barfield MD [address] [place], [address], [facility] 02/11/2022 12:01:45 02/10/2023 text/html 02/10/23CC : Car diac follow up, PalpitationPatient is a 72-year-old white female with a PMH of PAF, hypertension, RLE DVT, MVP, endometriosis presents today for follow-up with labs results. She was last seen in the clinic on 02/11/22, since then she is doing wellShe denies ER visits and hospitalizations since she was last seen. Denies chest pain.Denies shortness of breath at rest. Has mild dyspnea on exertion.No orthopnea. No PNDs.Denies heart palpitations.Denies dizziness. Denies syncope or near syncope.No ankle or leg edema.No major bleeding events.No reported side effects from medications. Taking medications as prescribed with no missed doses.Denies snoring, daytime somnolence and AM headache.*Last LDL was 83 done on 02/11/22.Pt takes atorvastatin 10 mg. 02/12/22:Na 141,K 4.4,Cl 100,Co2 27,Glu 104,Bun 14,Cr 0.85,ALT 25,AST 16.CK 94.02/12/22:TC 159,TG 135,HDL 52,LDL 83. *Had ECHO done on 07/23/21 showed LV chamber size is normal,LV wall thickness is normal,there is normal global systolic function and contractility,the estimated LVEF is 60-65%,there is mild thickening of the mitral valve anterior leaflet,there is trace mitral regurgitation,there is trace tricuspid regurgitation. She followed with Dr. Lemus following her AFib ablation. She reports feeling well with no complaints. She remains in NSR. Had negative stress test done in 05/26/19 with normal LV systolic function , EF 57% She was in ER 05/17/2019; with Palpitation, and bp 223/97. Reports a family hx of heart disease. Mother had A-fib, CAD and CHF. *He was in the [facility] on 04/22/19 with complaints of palpitations. She has a hx of HTN and was started on metoprolol then had significant bradycardia. Previously, she was found to have short runs of A-fib with RVR then spontaneously converted to NSR. Her metoprolol was changed to Bystolic and was placed on full-dose ASA. Results from this visit, or from the past:BMP 05/17/2019 NA 140 K 3.5 CH 100 CO2 29 GL 112 BUN 19 CR 0.90 CA 9.9 CBC 05/17/2019 WBC 10.9 RBC 4.78 HGB 14.4 HCT 42.6 PLT 282 Labs: Hgb 14.6, Hct 43.3Na 141, K 3.3, BUN 22, Cr 1.0, Glu 114, treadmill nuclear stress test (PROC) tdm-Negative stress test. Normal LV systolic function. LVEF 57%. 11/04/19 EKG: Non specific Flat T waves inferoir leads electrocardiogram 06-02-2019 EKG 04/29/19 AM Sinus bradycardia. Otherwise within normal limits EKG 04/29/19 AM Sinus bradycardia. Otherwise within normal limits 04/26/19 ECHO: Normal LV wall thickness. Normal global LV systolic function. LVEF 60%. Normal appearance of the mitral valve. Mitral valve leaflets appear mildly thickened. Mild mitral valve prolapse involving the posterior mitral valve. Trivial regurgitation of the mitral valve. Jose Francisco Barfield MD [facility] [place], [address], [facility] 02/10/2023 12:22:09 02/09/2024 text/html 02/09/24CC : Car diac follow up dyspnea on exertionPatient is a 73-year-old white female with a PMH of Paroxysmal a fib s/p ablation, hypertension, ELEAZAR not CPAP, RLE DVT, MVP, endometriosis presents today for follow-up with labs and ECHO results results. She was last seen in the clinic on 02/10/23, since then she is doing well. *Last LDL was 48 done on 02/10/23.Pt takes atorvastatin 10 mg.She denies ER visits and hospitalizations since she was last seen. Today reports:Denies chest pain.Denies shortness of breath at rest. Has mild dyspnea on exertion.No orthopnea. No PNDs.Denies heart palpitations.Denies dizziness. Denies syncope or near syncope.No ankle or leg edema.No major bleeding events.No reported side effects from medications. Taking medications as prescribed with no missed doses.Denies snoring, daytime somnolence and AM headache.*Last LDL was 48 done on 02/10/23.Pt takes atorvastatin 10 mg. *Had ECHO on 03/04/23 showed LV chamber size is normal,LVEF is 65-70%,sinus bradycardia. 02/11/23:Na 144,K 4.2,Cl 104,CO2 ,GLU 98,BUN 13,Cr 0.84,AST 10,ALT 13.02/11/23:TC 147,TG 161,LDL 48,HDL 72. Previously:*Had ECHO done on 07/23/21 showed LV chamber size is normal,LV wall thickness is normal,there is normal global systolic function and contractility,the estimated LVEF is 60-65%,there is mild thickening of the mitral valve anterior leaflet,there is trace mitral regurgitation,there is trace tricuspid regurgitation. She followed with Dr. Lemus following her AFib ablation. She reports feeling well with no complaints. She remains in NSR. Had negative stress test done in 05/26/19 with normal LV systolic function , EF 57% She was in ER 05/17/2019; with Palpitation, and bp 223/97. Reports a family hx of heart disease. Mother had A-fib, CAD and CHF. *He was in the [facility] on 04/22/19 with complaints of palpitations. She has a hx of HTN and was started on metoprolol then had significant bradycardia. Previously, she was found to have short runs of A-fib with RVR then spontaneously converted to NSR. Her metoprolol was changed to Bystolic and was placed on full-dose ASA. Results from this visit, or from the past:BMP 05/17/2019 NA 140 K 3.5 CH 100 CO2 29 GL 112 BUN 19 CR 0.90 CA 9.9 CBC 05/17/2019 WBC 10.9 RBC 4.78 HGB 14.4 HCT 42.6 PLT 282 Labs: Hgb 14.6, Hct 43.3Na 141, K 3.3, BUN 22, Cr 1.0, Glu 114, treadmill nuclear stress test (PROC) tdm-Negative stress test. Normal LV systolic function. LVEF 57%. 11/04/19 EKG: Non specific Flat T waves inferoir leads electrocardiogram 06-02-2019 EKG 04/29/19 AM Sinus bradycardia. Otherwise within normal limits EKG 04/29/19 AM Sinus bradycardia. Otherwise within normal limits 04/26/19 ECHO: Normal LV wall thickness. Normal global LV systolic function. LVEF 60%. Normal appearance of the mitral valve. Mitral valve leaflets appear mildly thickened. Mild mitral valve prolapse involving the posterior mitral valve. Trivial regurgitation of the mitral valve. [facility] [place] [facility] 02/09/2024 11:22:43 02/08/2025 text/html 02/08/25CC : Car diac follow up, PalpitationPatient is a 74-year-old white female with a PMH of Paroxysmal a fib s/p ablation, hypertension, ELEAZAR not CPAP, RLE DVT, MVP, endometriosis presents today for 1 year follow-up with labs results. She was last seen in the clinic on 02/09/24, since then she is doing wellShe denies ER visits and hospitalizations since she was last seen. Today reports: CC: pt states no concerns at this time .Denies chest pain.Denies shortness of breath at rest. Has mild dyspnea on exertion.No orthopnea. No PNDs.Has occasional heart palpitations.Denies dizziness. Denies syncope or near syncope.No ankle or leg edema.No major bleeding events.No reported side effects from medications. Taking medications as prescribed with no missed doses.Denies snoring, daytime somnolence and AM headache.*Last LDL was 56 done on 02/10/24.Pt takes atorvastatin 10 mg. 02/11/24:Na 141,K 4.2,CL 100,CO2 27,GLU 93,BUN 14,Cr 0.86,AST 12,ALT 19,HbA1c 5.8,CK 71.02/11/24:TC 156,TG 175,HDL 56,LDL 71. Previously: *Had ECHO on 03/04/23 showed LV chamber size is normal,LVEF is 65-70%,sinus bradycardia. *Had negative stress test done in 05/26/19 with normal LV systolic function , EF 57% She was in ER 05/17/2019; with Palpitation, and bp 223/97. *He was in the [facility] on 04/22/19 with complaints of palpitations. She has a hx of HTN and was started on metoprolol then had significant bradycardia. Previously, she was found to have short runs of A-fib with RVR then spontaneously converted to NSR. Her metoprolol was changed to Bystolic and was placed on full-dose ASA. Results from this visit, or from the past:BMP 05/17/2019 NA 140 K 3.5 CH 100 CO2 29 GL 112 BUN 19 CR 0.90 CA 9.9 CBC 05/17/2019 WBC 10.9 RBC 4.78 HGB 14.4 HCT 42.6 PLT 282 Labs: Hgb 14.6, Hct 43.3Na 141, K 3.3, BUN 22, Cr 1.0, Glu 114, treadmill nuclear stress test (PROC) tdm-Negative stress test. Normal LV systolic function. LVEF 57%. 11/04/19 EKG: Non specific Flat T waves inferoir leads electrocardiogram 06-02-2019 EKG 04/29/19 AM Sinus bradycardia. Otherwise within normal limits EKG 04/29/19 AM Sinus bradycardia. Otherwise within normal limits 04/26/19 ECHO: Normal LV wall thickness. Normal global LV systolic function. LVEF 60%. Normal appearance of the mitral valve. Mitral valve leaflets appear mildly thickened. Mild mitral valve prolapse involving the posterior mitral valve. Trivial regurgitation of the mitral valve. Jose Francisco Barfield MD [address] [place], [address], [facility] 02/08/2025 09:38:07 OBGyn Episode No OBEpisode recorded.
--- OUTSIDE RECORDS SUMMARY | 2025-04-05 13:35 | XMS_ITS | Clinical Summary ---
Author Organization [facility] Address [address] [place] [address] Care Team Providers Care Student Accounts Manager Name Role Phone Unavailable Primary Care Provider Unavailabl e Immunizations Immunization Administration Dates Next Due Covid-19, Mrna, Lnp-s, Pf, 30 Mcg/0.3 Ml Dose (P theazer) 08/23/2021 Social History Tobacco Use Types Packs/Day [...]
--- OUTSIDE RECORDS SUMMARY | 2025-04-05 13:36 | XMS_ITS | Referral Summary ---
Author Organization [facility] Office [place] Address [address] [place] [address] Care Team Providers Care Academic Success Coordinator Name Role Phone Hugh Cho MD Primary Care Prov ider Harman Lemus MD Unavailable [phone] Allergies No known active allergies Medications aspirin 325 mg enteric coated tablet 81 mg every other day 0 04/22/2019 Active calcium citrate 250 mg calcium tablet Take by mouth Active omega 0-bec-xft-fish oil 1,000 mg (120 mg-180 mg) capsule [...] 08/23/2019 Assessment & Plan (12/18/2020 12:45 PM SIGN WRITER HAND): 10 yr risk sig. LDL < 70 Now...Continue statin Assessment & Plan (05/23/2020 8:24 AM CDT): Continue statins. Check fasting lipid panel and CMP Assessment & Plan (11/23/2019 10:55 AM SIGN WRITER HAND): Continue Lipitor. Tolerating it well. Follow-up lipid [...] and get results from ER visit at [facility] Assessment & Plan (11/28/2020 8:31 AM SIGN WRITER HAND): Extremely low asymptomatic burden no need for further therapy Assessment & Plan (05/23/2020 8:24 AM CDT): Very rare symptoms. No structural heart disease. No indication for further treatment. Assessment & Plan (11/23/2019 10:56 AM SIGN WRITER HAND): Asymptomatic. Assessment & Plan (08/23/2019 3:40 PM [...] 04/29/2019 Assessment & Plan (11/28/2020 8:31 AM SIGN WRITER HAND): Excellent results after PVI about 18 months ago. No need for antiarrhythmics or anticoagulants Assessment & Plan (05/23/2020 8:24 AM CDT): Excellent results after PVI. No indication for antiarrhythmics or anticoagulation. Assessment & Plan (11/23/2019 10:56 AM SIGN WRITER HAND): Excellent results from PVI. No anticoagulation antiarrhythmics [...] 04/28/2019 Assessment & Plan (11/28/2020 8:31 AM SIGN WRITER HAND): Well controlled Assessment & Plan (11/23/2019 10:56 AM SIGN WRITER HAND): Prior creatinine and potassium normal. CT chest [...] on file Legal Sex Female 4:45 AM SIGN WRITER HAND Gender Identity Female 11/23/2020 9:19 PM SIGN WRITER HAND Sexual Orientation Straight 11/23/2020 9: 19 PM SIGN WRITER HAND Last Filed Vital Signs Vital Sign Reading Time Taken Comments Blood Pressure 130/70 11/28/2020 8:16 AM SIGN WRITER HAND Pulse 60 11/28/2020 8:16 AM SIGN WRITER HAND Temperature 36.6 C (97.8 F) 11/28/2020 8:16 AM SIGN WRITER HAND Respiratory Rate - - Oxygen Saturation 98% 11/23/2019 10:38 AM SIGN WRITER HAND Inhaled Oxygen Concentration - - Weight 83 kg (183 lb) 11/28/2020 8:16 AM SIGN WRITER HAND Height 167.6 cm (5' 6 ) 11/28/2020 8:16 AM SIGN WRITER HAND Body Mass Index 29.54 11/28/2020 8:16 AM SIGN WRITER HAND Plan of Treatment Not on file Insurance MEDICARE [facility] MEDICARE COUNTS INCLUDE 234 BEDS AT THE [facility] MEDICARE [facility] MEDICARE Advance Directives For more information, please contact: [phone] Documents on File Type Date Recorded Patient Manager Of Purchasing Expl anation ADVANCE DIRECTIVE 07/11/2019 12:00 AM AMRIK VICKY WILL ADVANCE DIRECTIVE 07/11/2019 12:00 AM YENI Lieberman OF [employer] IN[employer]ER FINANCIAL/MEDICAL Care Teams Academic Success Coordinator Relationship Specialty Start Date End Date Hugh Cho MD PCP - General Family Medicine 06/16/19 Harman Lemus MD Reinforcing Steel Worker Cardiovascular Disease 07/13/19
== END 2025-04-05 13:32 | disposition home or self-care (01) ==
PROVIDERS: PCP Family Medicine; Visit Provider Family Medicine
DX: M25.512 Pain in left shoulder (principal); M77.8 Other enthesopathies, not elsewhere classified
CPT/HCPCS: 73221

== ENCOUNTER 2025-04-12 09:02 | Outpatient (CLI) | payer MEDICARE, OTHER, SELFPAY ==
--- NOTE | ~2025-04-12 | US_ITS ---
Limited Abdominal Sonogram: Real-time sonographic imaging of the right upper quadrant was performed. Clinical History: Abnormal findings of blood chemistry Findings: The liver appears echogenic, with no evidence of mass lesion or bile duct dilatation. Main portal vein demonstrates normal direction of flow. The gallbladder is well distended, and appears no rmal with no evidence of gallstone or wall thickening. The common bile duct measures 3 mm. The visua lized pancreas, aorta, and IVC are unremarkable. Impression: Diffuse fatty infiltration of the liver. Reviewed, dictated and finalized at location M. Impression: Diffuse fatty infiltration of the liver.
--- OUTSIDE RECORDS SUMMARY | 2025-04-12 09:10 | XMS_ITS | Clinical Summary ---
Author Organization [facility] Address [address] [place] [id number] Care Team Providers Care Addiction Medicine Physician Name Role Phone Unavailable Primary Care Provider [...]
--- OUTSIDE RECORDS SUMMARY | 2025-04-12 09:10 | XMS_ITS | Referral Summary ---
Author Organization [facility] at the [facility] Office [place] Address [address] [place] [address] Care Team Providers Care Endless Bed Drum Sander Name Role Phone Hugh Cho MD Primary Care Prov ider Harman Lemus MD Unavailable [phone] Allergies No known active allergies Medications aspirin 325 mg enteric coated tablet 81 mg every other day 0 04/22/2019 Active calcium citrate 250 mg calcium tablet Take by mouth Active omega 5-did-yvi-fish oil 1,000 mg (120 mg-180 mg) capsule [...] 08/23/2019 Assessment & Plan (12/18/2020 12:45 PM TALENT DEVELOPMENT MANAGER): 10 yr risk sig. LDL < 70 Now...Continue statin Assessment & Plan (05/23/2020 8:24 AM CDT): Continue statins. Check fasting lipid panel and CMP Assessment & Plan (11/23/2019 10:55 AM TALENT DEVELOPMENT MANAGER): Continue Lipitor. Tolerating it well. Follow-up lipid [...] and get results from ER visit at [place] Assessment & Plan (11/28/2020 8:31 AM TALENT DEVELOPMENT MANAGER): Extremely low asymptomatic burden no need for further therapy Assessment & Plan (05/23/2020 8:24 AM CDT): Very rare symptoms. No structural heart disease. No indication for further treatment. Assessment & Plan (11/23/2019 10:56 AM TALENT DEVELOPMENT MANAGER): Asymptomatic. Assessment & Plan (08/23/2019 3:40 PM [...] 04/29/2019 Assessment & Plan (11/28/2020 8:31 AM TALENT DEVELOPMENT MANAGER): Excellent results after PVI about 18 months ago. No need for antiarrhythmics or anticoagulants Assessment & Plan (05/23/2020 8:24 AM CDT): Excellent results after PVI. No indication for antiarrhythmics or anticoagulation. Assessment & Plan (11/23/2019 10:56 AM TALENT DEVELOPMENT MANAGER): Excellent results from PVI. No anticoagulation antiarrhythmics [...] 04/28/2019 Assessment & Plan (11/28/2020 8:31 AM TALENT DEVELOPMENT MANAGER): Well controlled Assessment & Plan (11/23/2019 10:56 AM TALENT DEVELOPMENT MANAGER): Prior creatinine and potassium normal. CT chest [...] on file Legal Sex Female 4:45 AM TALENT DEVELOPMENT MANAGER Gender Identity Female 11/23/2020 9:19 PM TALENT DEVELOPMENT MANAGER Sexual Orientation Straight 11/23/2020 9: 19 PM TALENT DEVELOPMENT MANAGER Last Filed Vital Signs Vital Sign Reading Time Taken Comments Blood Pressure 130/70 11/28/2020 8:16 AM TALENT DEVELOPMENT MANAGER Pulse 60 11/28/2020 8:16 AM TALENT DEVELOPMENT MANAGER Temperature 36.6 C (97.8 F) 11/28/2020 8:16 AM TALENT DEVELOPMENT MANAGER Respiratory Rate - - Oxygen Saturation 98% 11/23/2019 10:38 AM TALENT DEVELOPMENT MANAGER Inhaled Oxygen Concentration - - Weight 83 kg (183 lb) 11/28/2020 8:16 AM TALENT DEVELOPMENT MANAGER Height 167.6 cm (5' 6) 11/28/2020 8:16 AM TALENT DEVELOPMENT MANAGER Body Mass Index 29.54 11/28/2020 8:16 AM TALENT DEVELOPMENT MANAGER Plan of Treatment Not on file Insurance MEDICARE [facility] MEDICARE [facility] MEDICARE [facility] MEDICARE Advance Directives For more information, please contact: [phone] Documents on File Type Date Recorded Patient Audiovisual Technician Expl anation ADVANCE DIRECTIVE 07/11/2019 12:00 AM AMRIK VICKY WILL ADVANCE DIRECTIVE 07/11/2019 12:00 AM YENI Lieberman OF INTEGRATION SOFTWARE ENGINEER FINANCIAL/MEDICAL Care Teams Endless Bed Drum Sander Relationship Specialty Start Date End Date Hugh Cho MD PCP - General Family Medicine 06/16/19 Harman Lemus MD Application Architect Manager Cardiovascular Disease 07/13/19
--- OUTSIDE RECORDS SUMMARY | 2025-04-12 09:10 | XMS_ITS | Clinical Summary ---
Author Organization [facility] at the [facility] Office [place] Address [address] [place] [address] Care Team Providers Care Amortization Clerk Name Role Phone Hugh Cho MD Primary Care Prov ider Harman Lemus MD Unavailable [phone] Allergies No known active allergies Medications aspirin 325 mg enteric coated tablet 81 mg every other day 0 04/22/2019 Active calcium citrate 250 mg calcium tablet Take by mouth Active omega 0-bxk-lal-fish oil 1,000 mg (120 mg-180 mg) capsule [...] 08/23/2019 Assessment & Plan (12/18/2020 12:45 PM POTATO CHIP COOKER MACHINE): 10 yr risk sig. LDL < 70 Now...Continue statin Assessment & Plan (05/23/2020 8:24 AM CDT): Continue statins. Check fasting lipid panel and CMP Assessment & Plan (11/23/2019 10:55 AM POTATO CHIP COOKER MACHINE): Continue Lipitor. Tolerating it well. Follow-up lipid [...] and get results from ER visit at [place] Assessment & Plan (11/28/2020 8:31 AM POTATO CHIP COOKER MACHINE): Extremely low asymptomatic burden no need for further therapy Assessment & Plan (05/23/2020 8:24 AM CDT): Very rare symptoms. No structural heart disease. No indication for further treatment. Assessment & Plan (11/23/2019 10:56 AM POTATO CHIP COOKER MACHINE): Asymptomatic. Assessment & Plan (08/23/2019 3:40 PM [...] 04/29/2019 Assessment & Plan (11/28/2020 8:31 AM POTATO CHIP COOKER MACHINE): Excellent results after PVI about 18 months ago. No need for antiarrhythmics or anticoagulants Assessment & Plan (05/23/2020 8:24 AM CDT): Excellent results after PVI. No indication for antiarrhythmics or anticoagulation. Assessment & Plan (11/23/2019 10:56 AM POTATO CHIP COOKER MACHINE): Excellent results from PVI. No anticoagulation antiarrhythmics [...] 04/28/2019 Assessment & Plan (11/28/2020 8:31 AM POTATO CHIP COOKER MACHINE): Well controlled Assessment & Plan (11/23/2019 10:56 AM POTATO CHIP COOKER MACHINE): Prior creatinine and potassium normal. CT chest [...] on file Legal Sex Female 4:45 AM POTATO CHIP COOKER MACHINE Gender Identity Female 11/23/2020 9:19 PM POTATO CHIP COOKER MACHINE Sexual Orientation Straight 11/23/2020 9: 19 PM POTATO CHIP COOKER MACHINE Obstetrics History Last Filed Vital Signs Vital Sign Reading Time Taken Comments Blood Pressure 130/70 11/28/2020 8:16 AM POTATO CHIP COOKER MACHINE Pulse 60 11/28/2020 8:16 AM POTATO CHIP COOKER MACHINE Temperature 36.6 C (97.8 F) 11/28/2020 8:16 AM POTATO CHIP COOKER MACHINE Respiratory Rate - - Oxygen Saturation 98% 11/23/2019 10:38 AM POTATO CHIP COOKER MACHINE Inhaled Oxygen Concentration - - Weight 83 kg (183 lb) 11/28/2020 8:16 AM POTATO CHIP COOKER MACHINE Height 167.6 cm (5' 6) 11/28/2020 8:16 AM POTATO CHIP COOKER MACHINE Body Mass Index 29.54 11/28/2020 8:16 AM POTATO CHIP COOKER MACHINE Plan of Treatment Not on file Insurance MEDICARE [facility] MEDICARE [facility] MEDICARE [facility] MEDICARE Advance Directives For more information, please contact: [phone] Documents on File Type Date Recorded Patient Quality Lead Expl anation ADVANCE DIRECTIVE 07/11/2019 12:00 AM AMRIK PERRY WILL ADVANCE DIRECTIVE 07/11/2019 12:00 AM YENI Lieberman OF TECHNICAL PRODUCT MANAGER FINANCIAL/MEDICAL Care Teams Amortization Clerk Relationship Specialty Start Date End Date Hugh hCo MD PCP - General Family Medicine 06/16/19 Harman Lemus MD Driller'S Offsider Cardiovascular Disease 07/13/19
== END 2025-04-12 09:03 | disposition home or self-care (01) ==
PROVIDERS: PCP Family Medicine; Visit Provider Family Medicine
DX: K76.0 Fatty (change of) liver, not elsewhere classified (principal); R79.89 Other specified abnormal findings of blood chemistry
CPT/HCPCS: 76705

== ENCOUNTER 2025-07-14 07:20 | Outpatient (CLI) | payer MEDICARE, OTHER, SELFPAY ==
--- NOTE | ~2025-07-14 | MM_ITS ---
EXAMINATION: screening [facility] BI w jorge INDICATION: Asymptomatic, referred for screening mammogram COMPARISON: 07/08/2024 through 11/29/2018 TECHNIQUE: Digital Breast Tomosynthesis CC, MLO views of Both breasts were obtained with computer-aided detection to assist in interpretation of the study. FINDINGS: There are scattered areas of fibroglandular density. There is a mass in the superior slightly lateral subareolar right breast at anterior third. Elsewhere, there are no mammographic features of malignancy. IMPRESSION: 1. Right breast Mass. 2. No evidence of malignancy in the Left breast. RECOMMENDATION: Right breast Diagnostic mammogram with true lateral, appropriate spot compression views and an ultrasound if needed. BI-RADS Category 0: Incomplete: Needs additional imaging evaluation. Reviewed, dictated and finalized at location B. IMPRESSION: 1. Right breast Mass. 2. No evidence of malignancy in the Left breast. RECOMMENDATION: Right breast Diagnostic mammogram with true lateral, appropriate spot compressi on views and an ultrasound if needed. BI-RADS Category 0: Incomplete: Needs additional imaging evaluation.
== END 2025-07-14 07:21 | disposition home or self-care (01) ==
PROVIDERS: PCP Obstetrics & Gynecology; Visit Provider Family Medicine Adolescent Medicine
DX: Z12.31 Encounter for screening mammogram for malignant neoplasm of breast (principal); R92.8 Other abnormal and inconclusive findings on diagnostic imaging of breast
CPT/HCPCS: 77063; 77067

== ENCOUNTER 2025-07-27 12:21 | Outpatient (CLI) | payer MEDICARE, OTHER, SELFPAY ==
--- NOTE | ~2025-07-27 | US_ITS ---
EXAMINATION: US soft tissue upper back DATE: 08/04/2025 11:22 INDICATION: Right back pain TECHNIQUE: Multiple grayscale and Doppler ultrasound images of the posterolateral right upper thorax were obtained. COMPARISON: None FINDINGS/IMPRESSION: Normal appearance to the subcutaneous fat, underlying musculature, ribs and likely scapula at the region of concern. No abnormal masses or fluid collections identified. Reviewed, dictated and finalized at location A.
--- NOTE | ~2025-07-27 | MMUS_ITS ---
EXAMINATION: MM diagnostic richard RT w jorge, US breast RT limited INDICATION: 75-year old female; BI-RADS 0, right breast finding. COMPARISON: 07/14/2025 TECHNIQUE: Digital breast tomosynthesis True lateral and spot compression CC and MLO views of the RIGHT breast were obtained with computer-aided detection to assist in interpretation of the study. FINDINGS: There are scattered areas of fibroglandular density. A circumscribed mass persists in the superior lateral subareolar right breast. Ultrasound was performed for further evaluation. RIGHT BREAST ULTRASOUND FINDINGS: Targeted evaluation of the area of concern was completed. There is a 0.2 cm anechoic circumscribed mass at 11:00 location near the nipple in the RIGHT breast that correlates to the area of Mammographic finding. There are additional smaller cysts seen in the subareolar location. IMPRESSION: Benign RIGHT breast cyst correlates to mammographic finding. No further investigation necessary. RECOMMENDATION: Annual screening bilateral mammography due in June 2026. BI-RADS 2, BENIGN Reviewed, dictated and finalized at location B. IMPRESSION: Benign RIGHT breast cyst correlates to mammographic finding. No further investi gation necessary. RECOMMENDATION: Annual screening bilateral mammography due in June 2026. BI-RADS 2, BENIGN
--- OUTSIDE RECORDS SUMMARY | 2025-07-27 14:06 | XMS_ITS | Clinical Summary ---
Author Organization [facility] at the [facility] Office [place] Address [address] [place] [address] Care Team Providers Care Car Top Bolter Name Role Phone Hugh Cho MD Primary Care Prov ider Harman Lemus MD Unavailable [phone] Allergies No known active allergies Medications aspirin 325 mg enteric coated tablet 81 mg every other day 0 04/22/2019 Active calcium citrate 250 mg calcium tablet Take by mouth Active omega 5-tbk-lqt-fish oil 1,000 mg (120 mg-180 mg) capsule [...] 08/23/2019 Assessment & Plan (12/18/2020 12:45 PM HYDRATOR OPERATOR): 10 yr risk sig. LDL < 70 Now...Continue statin Assessment & Plan (05/23/2020 8:24 AM CDT): Continue statins. Check fasting lipid panel and CMP Assessment & Plan (11/23/2019 10:55 AM HYDRATOR OPERATOR): Continue Lipitor. Tolerating it well. Follow-up lipid [...] and get results from ER visit at [place] Assessment & Plan (11/28/2020 8:31 AM HYDRATOR OPERATOR): Extremely low asymptomatic burden no need for further therapy Assessment & Plan (05/23/2020 8:24 AM CDT): Very rare symptoms. No structural heart disease. No indication for further treatment. Assessment & Plan (11/23/2019 10:56 AM HYDRATOR OPERATOR): Asymptomatic. Assessment & Plan (08/23/2019 3:40 PM [...] 04/29/2019 Assessment & Plan (11/28/2020 8:31 AM HYDRATOR OPERATOR): Excellent results after PVI about 18 months ago. No need for antiarrhythmics or anticoagulants Assessment & Plan (05/23/2020 8:24 AM CDT): Excellent results after PVI. No indication for antiarrhythmics or anticoagulation. Assessment & Plan (11/23/2019 10:56 AM HYDRATOR OPERATOR): Excellent results from PVI. No anticoagulation antiarrhythmics [...] 04/28/2019 Assessment & Plan (11/28/2020 8:31 AM HYDRATOR OPERATOR): Well controlled Assessment & Plan (11/23/2019 10:56 AM HYDRATOR OPERATOR): Prior creatinine and potassium normal. CT chest [...] (obstructive sleep apnea) DVT (deep venous thrombosis) PAF (paroxysmal atrial fibrillation) Hypertension Arthritis Osteopenia Family History Medical History [...] on file Legal Sex Female 4:45 AM HYDRATOR OPERATOR Gender Identity Female 11/23/2020 9:19 PM HYDRATOR OPERATOR Sexual Orientation Straight 11/23/2020 9: 19 PM HYDRATOR OPERATOR Obstetrics History Last Filed Vital Signs Vital Sign Reading Time Taken Comments Blood Pressure 130/70 11/28/2020 8:16 AM HYDRATOR OPERATOR Pulse 60 11/28/2020 8:16 AM HYDRATOR OPERATOR Temperature 36.6 C (97.8 F) 11/28/2020 8:16 AM HYDRATOR OPERATOR Respiratory Rate - - Oxygen Saturation 98% 11/23/2019 10:38 AM HYDRATOR OPERATOR Inhaled Oxygen Concentration - - Weight 83 kg (183 lb) 11/28/2020 8:16 AM HYDRATOR OPERATOR Height 167.6 cm (5' 6) 11/28/2020 8:16 AM HYDRATOR OPERATOR Body Mass Index 29.54 11/28/2020 8:16 AM HYDRATOR OPERATOR Plan of Treatment Not on file Insurance MEDICARE [facility] MEDICARE [facility] MEDICARE [facility] MEDICARE Advance Directives For more information, please contact: [phone] Documents on File Type Date Recorded Patient Take Out Waitress Expl anation ADVANCE DIRECTIVE 07/11/2019 12:00 AM AMRIK VICKY WILL ADVANCE DIRECTIVE 07/11/2019 12:00 AM YENI Lieberman OF INFECTION PREVENTIONIST FINANCIAL/MEDICAL Care Teams Car Top Bolter Relationship Specialty Start Date End Date Hugh Cho MD PCP - General Family Medicine 06/16/19 Harman Lemus MD Pollution Control Engineer Cardiovascular Disease 07/13/19
--- OUTSIDE RECORDS SUMMARY | 2025-07-27 14:06 | XMS_ITS | Clinical Summary ---
Author Organization [facility] Address [address] [place] [id number] Care Team Providers Care Lpn Name Role Phone Unavailable Primary Care Provider [...] Virus (HCV) Screening 1950 TdaP Immunization 1950 Cologuard 1996 Colonoscopy 1996 Colorectal Cancer Screening 1996 Immunochemical Fecal Occult Blood 1996 Pneumococcal Immunization (5 0+ years) (1 of 1 - PCV) 2001 Zoster Immunization (1 of 2) 2001 Influenza Immunization (#1) 2025 SARS-COV-2 Immunization ( season) 2025 08/23/2021, 02/01/2021, 01/11/2021 Respiratory Syncytial Virus (RSV) Immunization (Adult) (1 - 1-dose 75+ series) 2026 Hepatitis B Immunization Aged Out No longer eligible based on patient's age to complete this topic Human Papillomavirus (HPV) Immunization Aged Out No longer eligible b ased on patient's age to complete this topic Meningococcal Immunization (ACWY) Aged Out No longer eligible b ased on patient's age to complete this topic Rotavirus Immunization Aged Out No lo nger eligible based on patient's age to complete this topic
== END 2025-07-27 12:22 | disposition home or self-care (01) ==
LOC: ANHFOHIMG 12:23
PROVIDERS: PCP Family Medicine Adolescent Medicine; Visit Provider Family Medicine Adolescent Medicine
DX: R92.8 Other abnormal and inconclusive findings on diagnostic imaging of breast (principal)
CPT/HCPCS: 76642; 77061; 77065; G0279

== ENCOUNTER 2025-10-09 07:53 | Outpatient (CLI) | payer MEDICARE, OTHER, SELFPAY ==
--- NOTE | ~2025-10-09 | DEXA_ITS ---
Bone Density Report Name: DEBORAH GUZMÁN Age: 75 Sex: Female Ethnicity: White Date of : 1950 Indication: osteopenia; Referring Provider: RHETT STORM Study: Bone densitometry was performed. Exam Date: October 09, 2025 Accession number: [id number] Bone Density: Region BMD T-score Z-score Classification AP Spine(L1-L4) 0.893 -1.4 1.0 Osteopenia Femoral Neck (Left) 0.652 -1.8 0.3 Osteopenia Total Hip (Left) 0.785 -1.3 0.4 Osteopenia Femoral Neck (Right) 0.648 -1.8 0.2 Osteopenia Total Hip (Right) 0.845 -0.8 0.9 Normal Total Hip Mean 0.815 -1.1 0.7 Osteopenia World Health Organization criteria for BMD impression classify patients as: Normal (T-score at or above -1.0), Osteopenia (T-score between -1.0 and -2.5), or Osteoporosis (T-score at or below -2.5). 10-year Fracture Risk(1): Major Osteoporotic Fracture 11% Hip Fracture 2.4% Reported Risk Factors: [place] (), Neck BMD=0.652, BMI=30.3 (1) FRAX(R) Version 3.08. Fracture probability calculated for an untreated patient. Fracture probability may be lower if the patient has received treatment. Previous Exams: -- Region Exam Age BMD T-score BMD Change BMD Change Date g/cm2 vs Baseline vs Previous -- AP Spine (L1-L4) 10/09/2025 75 0.893 -1.4 4.9%* 4.9%* 09/30/2019 69 0.851 -1.8 Total Hip(Left) 10/09/2025 75 0.785 -1.3 -4.4%* -4.4%* 09/30/2019 69 0.821 -1.0 Total Hip(Right) 10/09/2025 75 0.845 -0.8 -2.4% -2.4% 09/30/2019 69 0.866 -0.6 -- *Denotes significance at 95% confidence level, LSC for AP Spine = 0.022 g/cm2, LSC for Total Hip = 0.027 g/cm2 Clinical Information Provided by Patient: Has used the following medications: Fosamax (i.e. alendronate), Vitamin D, Calcium Has the following medical conditions: Afib Patient maximum height was 66 Menopause Age: 55 Does not regularly consume dairy products Drinks caffeinated beverages Onset of menses at age 14 Number of children 2 Impression: The patient has low bone mass, based on the Left Femoral Neck T-score. The patient has an estimated ten-year risk of hip fracture of 2.4% and an estimated ten-year risk of major fracture of 11%, based on the WHO FRAX algorithm. The BMD for the Total Hip(Left) decreased, changing by -4.4% since the last DXA exam. Discussion: BONE DENSITY IS LOW AT ONE OR MORE SKELETAL SITES. This patient's lowest T-score is low at one or more skeletal sites. It meets the World Health Organization's (WHO) criteria for ?low bone mass? (T-score between -1.0 and -2.5). The patient's 10-year risk of fracture as calculated by FRAX is less than the threshold where pharmacological therapy is recommended by the National Osteoporosis Foundation (NOF). However, all treatment decisions require clinical judgment and consideration of individual patient factors, including patient preferences, comorbidities, previous drug use, risk factors not captured in the FRAX model (e.g., frailty, falls, vitamin D deficiency, increased bone turnover, interval significant decline in bone density) and possible under or overestimation of fracture risk by FRAX. The patient should follow a healthful lifestyle (good nutrition with adequate calcium and vitamin D, and appropriate weight-bearing exercise). Follow-Up: Consider repeating this study in 2 years to reassess this patient's status, or sooner if there is some new clinical indication. Reported by: OLYA on 10/09/2025 8:13:00 AM. Reviewed, dictated and finalized at location A.
== END 2025-10-09 07:54 | disposition home or self-care (01) ==
LOC: MICIMG 07:53
PROVIDERS: PCP Family Medicine Adolescent Medicine; Visit Provider Obstetrics & Gynecology
DX: M85.89 Other specified disorders of bone density and structure, multiple sites (principal); Z78.0 Asymptomatic menopausal state
CPT/HCPCS: 77080